=== PATIENT | female | born 1945 | race Caucasian/White ===

== ENCOUNTER 2016-11-25 19:15 | Outpatient (CLI) | payer MEDICARE, OTHER ==
[~2016-11-25 19:15] MED LIST: AC325T PO; ACET325T49 PO; ALPR0.254 PO; AMLO2.5T PO; ASP325T PO; ASPI-999 PO; ATOR10TA66 PO; ATRV10T PO; AZTH250C PO; BENZ100C8 PO; BUPR150T14 PO; BUPR150T20 PO; CALC-697 PO; CHOL100048 PO; CLOP75TA28 PO; ENOX100D4 SC; ENOX300V3 SQ; FURO20TA4 PO; GFN600TCR PO; GLYC2TAB PO; HYDR-2889 PO; HYDR-3812 PO; IBUP-2055 PO; ISOS30TA3 PO; LACT10SO PO; LISI40TA PO; MAGN400T39 PO; MELO15TA39 PO; MELO7.5T PO; MULT1TAB22 PO; NITR100C3 PO; OMEP40CA36 PO; ONDA8TAB13 PO; OXB5T PO; OXYB5TAB9 PO; OXYC-309 PO; PHEN200T27 PO; POTA10TA10 PO; RANI150T11 PO; SENN1TAB76 PO; SIMV20TA3 PO; SOTA80TA PO; TRAM50TA2 PO; TRIA1CAP4 PO; TRIA1TAB PO; TRM50T PO; VITA150T PO; WARF-48 PO; WARF10TA PO; WARF5TAB PO; WARF7.5T49 PO
== END 2016-11-26 06:52 | disposition home or self-care (01) ==
LOC: SLEEP 19:15
PROVIDERS: ATTEND Nurse Practitioner
DX: G47.19 Other hypersomnia (principal); G47.30 Sleep apnea, unspecified; R06.83 Snoring
CPT/HCPCS: 95811

== ENCOUNTER → 2018-04-14 | Outpatient (CLI) | payer MEDICARE, OTHER ==
[~2018-04-14] MED LIST changes: +ACHD5005 PO; -ENOX300V3 SQ; +ENOX300V4 SQ; -HYDR-3812 PO
--- NOTE | 2018-04-14 14:19 | Diagnostic Imaging Report ---
PROCEDURE: CT abdomen and pelvis without contrast. TECHNIQUE: Multiple contiguous axial images were obtained through the abdomen and pelvis without the use of intravenous contrast. INDICATION: Left-sided back pain. COMPARISON: There are no previous CT abdomen/pelvis examinations available for comparison. FINDINGS: The images through the low pelvis show that there is a well-circumscribed 6.2 x 9.1 cm calcific density near the ureterovesical junction on the left. On the coronal reconstructed images, this calcification seems to lie extraneous to the distal ureter (images 25, 26, and 52). The left ureter itself and the left renal pelvis do not seem to be dilated. If this calcification was within the ureter, given its size, I would expect there to be partial obstruction of the left collecting system. There is no sign of nephrolithiasis. There is no evidence for obstruction of the right collecting system either. By history, the uterus is surgically absent. There are diverticula involving the sigmoid and descending colon but there is no evidence for acute diverticulitis. The urinary bladder is grossly unremarkable. The appendix is not well visualized but there are no indirect signs of acute appendicitis. The liver, spleen, pancreas, adrenals, aorta, and inferior vena cava show no sign of an acute abnormality. The gallbladder is surgically absent. The stomach is not well distended and consequently difficult to assess. The images through the lung bases show alveolar/interstitial perihilar infiltrates on the left and a small area of increased density along the periphery of the right midlung. These findings are not visualized in their entirety but do suggest that they may be related to pneumonia or atelectasis. If further evaluation is desired, then CT of the chest would be recommended. The bone windows reveal that there is severe degenerative disc and bony disease at every level of the lumbar spine. There is no acute abnormality identified. IMPRESSION: 1. The large calcification near the ureterovesical junction on the left is more likely due to a phlebolith than to an obstructive calculus. If further evaluation is desired, then a followup CT abdomen/pelvis exam with intravenous contrast would be recommended. 2. There is no evidence for nephrolithiasis or urolithiasis, otherwise. 3. There is no acute abnormality of the abdomen or pelvis. 4. There is diverticulosis of the sigmoid and descending colon without evidence for acute diverticulitis. 5. The gallbladder and uterus are surgically absent. 6. There does appear to be some atelectasis/infiltrate in the left perihilar region and to a lesser extent the right midlung. Recommendations as above. Dictated by: Dictated on workstation # [id number]
--- NOTE | 2018-04-14 14:43 | Diagnostic Imaging Report ---
INDICATION: Low back pain. KUB 1:54 p.m. The gallbladder appears to be surgically absent. There are moderate degenerative changes throughout the lumbar spine. Bowel gas pattern is normal. IMPRESSION: Degenerative changes in the lumbar spine. No acute abnormality seen in the abdomen. Dictated by: Dictated on workstation # [id number]
== END ==
LOC: RAD 12:51
PROVIDERS: ATTEND Urology
DX: K57.30 Diverticulosis of large intestine without perforation or abscess without bleeding (principal); Z90.49 Acquired absence of other specified parts of digestive tract; Z90.710 Acquired absence of both cervix and uterus
CPT/HCPCS: 74018; 74176

== ENCOUNTER → 2018-11-18 | Outpatient (CLI) | payer MEDICARE, OTHER ==
[~2018-11-18] MED LIST changes: +CATHETER FLUSH 10 ML SYR IV PRN; +REGADENOSON 0.4 MG/5 ML SYR (LEXISCAN) IV ONE; +STL80T PO
[2018-11-18 09:33] VITALS: BP 156/71
--- NOTE | 2018-11-18 18:15 | STRESS TEST ---
DATE OF SERVICE: 11/18/2018 LEXISCAN MYOVIEW STRESS TEST REPORT REFERRING PHYSICIAN: Griffin Truong DO. Baseline heart rate is 65, baseline blood pressure 157/70. Baseline EKG is sinus rhythm with no ischemic changes. In summary, the patient was injected with 10.96 mCi of technetium-99 Myoview and the resting images were obtained. Then, the patient received 0.4 mg of Lexiscan followed by 27.4 mCi of technetium-99 Myoview. Throughout the test, there were no EKG changes. The resting and stress images were reviewed and compared in the short axis, horizontal long axis, and vertical long axis views. Review of the images showed good radiotracer uptake with no significant ischemia or infarction. SSS is 0. TID value 0.99. On the gated images, the left ventricle appeared to be in normal size with normal contractility. Calculated ejection fraction is 57%. CONCLUSION: 1. The patient tolerated Lexiscan well. 2. No ischemia or infarction on SPECT images. 3. Normal left ventricular size with normal contractility. Calculated ejection fraction is 57%. Job ID: [id number] DocumentID: [id number] Dictated Date: 11/18/2018 15:45:17 Medical Assistant Secretary Date: 11/18/2018 18:14:35 Dictated By: SARATH FELDMAN MD
== END ==
LOC: CARD 06:58
PROVIDERS: ATTEND Physician Assistant
DX: I35.1 Nonrheumatic aortic (valve) insufficiency (principal); R94.39 Abnormal result of other cardiovascular function study; I65.29 Occlusion and stenosis of unspecified carotid artery; I10 Essential (primary) hypertension; E78.5 Hyperlipidemia, unspecified
CPT/HCPCS: 78452; 93017

== ENCOUNTER → 2021-10-10 | Outpatient (CLI) | payer MEDICARE, OTHER ==
[~2021-10-10] MED LIST changes: +ALPR.25T PO; -ALPR0.254 PO; +BUPR-105 PO; -BUPR150T14 PO; -CATHETER FLUSH 10 ML SYR IV PRN; -IBUP-2055 PO; +IBUP-2473 PO; -ISOS30TA3 PO; +ISOS30TA82 PO; -LACT10SO PO; +LACT10SO3 PO; +OMEP40CA6 PO; +OXYB5TAB13 PO; -OXYB5TAB9 PO; -REGADENOSON 0.4 MG/5 ML SYR (LEXISCAN) IV ONE; -WARF5TAB PO; +WARF5TAB2 PO; +WARF7.5T3 PO; -WARF7.5T49 PO
== END ==
LOC: CARD 12:20
PROVIDERS: ATTEND Internal Medicine Cardiovascular Disease
DX: I34.0 Nonrheumatic mitral (valve) insufficiency (principal); I11.9 Hypertensive heart disease without heart failure
CPT/HCPCS: 93306

== ENCOUNTER → 2021-12-04 | Outpatient (CLI) | payer MEDICARE, OTHER ==
[~2021-12-04] VITALS: Ht 152.4 cm; Wt 69.1 kg
[~2021-12-04] MED LIST changes: +HYDR25TA4 PO; +RIVA20TA PO; +TRIA1CAP84 PO
== END | disposition home or self-care (01) ==
LOC: PREOP 05:29
PROVIDERS: ATTEND Urology
DX: Z01.818 Encounter for other preprocedural examination (principal)

== ENCOUNTER 2021-12-11 06:15 | Day surgery (SDC) | payer MEDICARE, OTHER ==
[~2021-12-11] VITALS: Ht 152.4 cm; Wt 71.9 kg
[2021-12-11] VITALS (12 sets, daily range): BP systolic 87–160; BP diastolic 51–77
[2021-12-11] MEDS ORDERED: cefTRIAXone 1 GM PRE-MIX 50 ML IV ONE (06:30)
[2021-12-11] MEDS ORDERED: LACTATED RINGERS 1,000 ML IV PRN (06:30)
[2021-12-11] MEDS ORDERED: LIDOCAINE/EPI 2% 1:100,00 (XYLOCAINE) 20 ML VIAL ONE (07:00)
[2021-12-11] MEDS ORDERED: ESTRADIOL VAGINAL CREAM 42.5 GM (ESTRACE) VG ONE (07:00)
[2021-12-11] MEDS ORDERED: PROPOFOL INJECTION 50 ML IV ONE (07:49)
[2021-12-11] MEDS ORDERED: fentaNYL INJ 100 MCG/2 ML AMP ONE (07:49)
[2021-12-11] MEDS ORDERED: LIDOCAINE PF 2% 5 ML (XYLOCAINE) VIAL ONE (07:49)
[2021-12-11] MEDS ORDERED: proPOfol 200 MG/20 ML (DIPRIVAN) VIAL IV ONE ×2 (07:49→08:41)
[2021-12-11] MEDS ORDERED: FAMOTIDINE 20MG/2ML IV (PEPCID) IVP ONE (08:00)
[2021-12-11] MEDS ORDERED: ONDANSETRON 4 MG/2 ML (SDV) Z0FRAN IVP ONE (08:00)
--- NOTE | 2021-12-11 08:02 | Progress Note-Pre Operative ---
Pre-Operative Progress Note H&P Reviewed The H&P was reviewed, patient examined and no changes noted. Date Seen by Provider: Dec 11, 2021 Time Seen by Provider: 08:02 Date H&P Reviewed: Dec 11, 2021 Time H&P Reviewed: 08:02 Pre-Operative Diagnosis: CYSTOCELE AND INCONTINENCE HIWOT GOFF MD Dec 11, 2021 08:02
--- NOTE | 2021-12-11 08:05 | Progress Note-Post Operative ---
Post-Operative Progess Note Surgeon (s)/Senior Technical Manager (s) Surgeon HIWOT GOFF MD Senior Technical Manager: NONE Pre-Operative Diagnosis CYSTOCELE AND INCONTINENCE Post-Operative Diagnosis SAME Procedure & Operative Findings Date of Procedure 12/11/21 Procedure Performed/Findings ANTERIOR REPAIR, PVS AND CYSTOSCOPY Anesthesia Type GENERAL Estimated Blood Loss Estimated blood loss (mL): LESS THAN 50 cc Specimens/Packing Specimens Removed NONE TO PATH Packin GM ESTRACE VAG PACK HIWOT GOFF MD Dec 11, 2021 08:05
[2021-12-11] MEDS ORDERED: MILK OF MAGNESIA 400 MG/5 ML 30 ML UDC PO PRN (08:15)
--- NOTE | 2021-12-11 09:11 | Anesthesia-General Post-Op ---
General Patient Condition Mental Status/LOC: Same as Preop Cardiovascular: Satisfactory Nausea/Vomiting: Absent Respiratory: Satisfactory Pain: Controlled Complications: Absent Post Op Complications Complications None Follow Up Care/Instructions Patient Instructions None needed. Anesthesia/Patient Condition Patient Condition Patient is awake in PACU and doing well, no complaints, stable vital signs, no apparent adverse anesthesia problems. No complications reported per nursing. SHANNAN NELSON DO Dec 11, 2021 09:11
[2021-12-11] MEDS ORDERED: ONDANSETRON 4 MG/2 ML (SDV) Z0FRAN IVP PRN (09:15)
[2021-12-11] MEDS ORDERED: morphine INJ 10 MG/ML 1ML (SYR OR VIAL) IVP ONE (09:15)
[2021-12-11] MEDS: LACTATED RINGERS 1,000 ML IV SCH ×2 (10:27→16:00)
--- NOTE | 2021-12-11 13:38 | OPERATIVE REPORT ---
DATE OF SERVICE: 12/11/2021 PREOPERATIVE DIAGNOSES: Cystocele and incontinence. POSTOPERATIVE DIAGNOSES: Cystocele and incontinence. OPERATION PERFORMED: Anterior repair, pubovaginal sling, and cystoscopy. SURGEON: Claudio Goff MD. ANESTHESIA: General. COMPLICATIONS: None. DESCRIPTION OF PROCEDURE: Under satisfactory general anesthesia, the patient in extended lithotomy position, genitalia were prepped and draped in the usual sterile fashion. Espinoza catheter was inserted and connected to gravity. The anterior vaginal wall was infiltrated with lidocaine and epinephrine and an incision was made vertically in the anterior vaginal wall. The mucosa was dissected free from the underlying fascia. The fascia was approximated with several interrupted 2-0 Vicryl giving excellent support to the bladder. The Desara 2 pubovaginal sling was passed using the described technique. The sling was sitting nicely under the mid urethra with no twisting, no tension and passage of a curved hemostat easily between it and the underlying tissue. I removed the Espinoza catheter to perform cystoscopy to confirm the integrity of the bladder, ureters and urethra with no foreign body and presence of the sling under the mid urethra. I left the bladder half full to perform a manual Valsalva maneuver that was negative. Espinoza catheter was reinserted draining clear fluid. The excess vaginal mucosa was sharply excised and the mucosa was approximated with a running 2-0 Vicryl Rapide type suture. A 2 gram Estrace vaginal pack was inserted at the end of the procedure. The needle and sponge count was correct x2. Estimated blood loss was than 50 mL, urine clear all through the surgery and postoperatively. Job ID: [id number] DocumentID: [id number] Dictated Date: 12/11/2021 08:55:47 Basting Machine Operator Date: 12/11/2021 13:37:56 Dictated By: CLAUDIO GOFF MD [facility]
[2021-12-12 04:50] VITALS: BP 129/60
[2021-12-12] MEDS: LACTATED RINGERS 1,000 ML IV SCH ×2 (06:28→20:56)
[2021-12-12 07:55] VITALS: BP 114/58
--- NOTE | 2021-12-12 11:27 | Progress Note - Urology ---
Progress Note-Urology Progress Notes/Assess & Plan Progress/Assessment & Plan DOING WELL, VOIDING WELL, PVR 21. DRY. DISCHARGE WITH INSTRUCTIONS Final Diagnosis CYSTOCELE AND INCONTINENCE HIWOT GOFF MD Dec 12, 2021 11:27
--- NOTE | 2021-12-12 11:31 | Discharge Inst-Urology ---
Discharge Inst-Urology Reconcile Patient Problems Problems Reviewed?: Yes Final Diagnosis CYSTOCELE AND INCONTINENCE Patient Instructions/Follow Up Plan/Assessment/Instructions Please make appointment to been seen in office in 2 weeks. Rest till then C to visit daily and PRN, Straight cath PRN STAY OFF ASA AND XARELTO Keep bowels soft and moving Showers, no bath Please call her pharmacy for Rx Cipro 250 BID for 5 days Increase oral fluids for 48 hours and then as needed. Diet as tolerated. If questions or concerns contact your physician Or seek help at emergency department. HIWOT GOFF MD Dec 12, 2021 11:31
--- NOTE | 2021-12-12 11:46 | D/C HH Face to Face Order ---
D/C Face to Face Orders Instructions for Patient Via [facility], Patient Instructions/FollowUp: Staright cath if retention Physician to follow Patient: Dionne Discharge Diet for Home: No Restrictions Patient Data-Allergies,Ht & Wt Patient Allergies: Coded Allergies: azithromycin (Unverified Allergy, Unknown, Rash, 12/04/21) diltiazem (Verified Allergy, Unknown, 07/13/15) erythromycin base (Unverified Allergy, Unknown, 12/04/21) metronidazole (Verified Allergy, Unknown, 07/13/15) Height (Feet): 5 Height (Inches): 1.00 Weight (Pounds): 232 Weight (Ounces): 0.0 Home Health Need/Face to Face Date of Face to Face: Dec 12, 2021 Clinical Findings: Generalized weakness and fatigue, Instability, Other-list in note Postop I have seen Pt [id number]: Yes Discharged To: Home Diagnosis/Conditions: CYSTOCELE AND INCONTINENCE Patient is Homebound due to: Case fall risk due to instabilty, Pain w/ambulation Homebound Status Due to the above stated illness, injury or surgical procedure (medical condition or diagnosis) and associated clinical findings, the patient is homebound because of his/her inability to leave home except with aid of a supportive device and/or person AND leaving the home requires a considerable and taxing effort or is medically contraindicated. Pt req the following assistanc: [facility] Nursing Orders Home Health Services Order: Nursing Services, Tobacco Classer-Evaluate & Treat, Physical Therapy-Evaluate & Treat Home Health Infusion Therapy Line Start Date: Dec 11, 2021 Certify Stmt I certify that this patient is under my care and that I, a nurse practitioner or a physician; a loan assistant working with me, had a face to face encounter that - meets the physician face to face encounter requirements with this patient as dated. HIWOT GOFF MD Dec 12, 2021 11:46
[2021-12-12 12:50] VITALS: BP 148/76
[2021-12-12 16:00] VITALS: BP 142/72
== END 2021-12-12 17:35 | disposition home or self-care (01) ==
LOC: SDC 06:15 → WS 10:08 → SDC 12-12 17:35
PROVIDERS: ATTEND Urology
DX: N81.10 Cystocele, unspecified (principal); E66.01 Morbid (severe) obesity due to excess calories; Z68.31 Body mass index [BMI] 31.0-31.9, adult; G47.33 Obstructive sleep apnea (adult) (pediatric); Z79.899 Other long term (current) drug therapy
CPT/HCPCS: 57240; 57288; 87081; 94664; C1771

== ENCOUNTER 2022-05-04 14:00 | Outpatient (RCR) | payer MEDICARE, OTHER ==
[2022-05-03 14:00] LABS: BASOPHILS # (AUTO) 0.1 10^3/uL (0.0-0.1); BASOPHILS % (AUTO) 1 % (0-10); EOSINOPHILS # (AUTO) 0.2 10^3/uL (0.0-0.3); EOSINOPHILS % (AUTO) 3 % (0-10); HEMATOCRIT 36 % (35-52); HEMOGLOBIN 12.4 g/dL (11.5-16.0); LYMPHOCYTES # (AUTO) 2.9 10^3/uL (1.0-4.0); LYMPHOCYTES % (AUTO) 37 % (12-44); MEAN CORPUSCULAR HEMOGLOBIN 31 pg (25-34); MEAN CORPUSCULAR HGB CONC 34 g/dL (32-36); MEAN CORPUSCULAR VOLUME 92 fL (80-99); MEAN PLATELET VOLUME 10.1 fL (9.0-12.2); MONOCYTES # (AUTO) 0.8 10^3/uL (0.0-1.0); MONOCYTES % (AUTO) 10 % (0-12); NEUTROPHILS # (AUTO) 3.9 10^3/uL (1.8-7.8); NEUTROPHILS % (AUTO) 50 % (42-75); PLATELET COUNT 261 10^3/uL (130-400); WHITE BLOOD COUNT 7.8 10^3/uL (4.3-11.0)
--- NOTE | 2022-05-03 14:13 | Diagnostic Imaging Report ---
INDICATION: Cough PA and lateral views of the chest are obtained. Comparison is made to study of 07/12/2015. Overall heart size and pulmonary vascularity are within normal limits. Linear atelectasis and/or scarring is again noted in both lungs. There is no evidence of pneumothorax, consolidation or significant pleural fluid. IMPRESSION: Linear scarring in both lungs without acute abnormality or other significant change. Dictated by: Dictated on workstation # [id number]
[2022-05-03 14:21] LABS: ALBUMIN 3.7 GM/DL (3.2-4.5); BILIRUBIN,TOTAL 0.3 MG/DL (0.1-1.0); CALCIUM 9.3 MG/DL (8.5-10.1); CREATININE SERUM 0.65 MG/DL (0.60-1.30); POTASSIUM 3.7 MMOL/L (3.6-5.0); TOTAL PROTEIN 6.9 GM/DL (6.4-8.2)
== END 2022-05-08 | disposition home or self-care (01) ==
LOC: RAD 14:00
PROVIDERS: ATTEND Registered Nurse Critical Care Medicine
DX: J98.4 Other disorders of lung (principal); J15.8 Pneumonia due to other specified bacteria; B37.84 Candidal otitis externa; B37.0 Candidal stomatitis; I10 Essential (primary) hypertension; K21.9 Gastro-esophageal reflux disease without esophagitis; H92.01 Otalgia, right ear; E78.49 Other hyperlipidemia; R09.81 Nasal congestion
CPT/HCPCS: 36415; 71046; 80053; 85025; 87581

== ENCOUNTER 2023-03-13 11:53 | Inpatient (IN) | payer MEDICARE, OTHER ==
[~2023-03-13] VITALS: Ht 154.9 cm; Wt 64.4 kg
--- NOTE | 2023-03-13 12:09 | ED Cardiac General ---
History of Present Illness General Stated Complaint: BRADYCARDIA Source: patient, EMS Exam Limitations: no limitations History of Present Illness Date Seen by Provider: Mar 13, 2023 Time Seen by Provider: 11:52 Initial Comments 77-year-old female with history of atrial fibrillation presents to the emergency department today for generalized weakness, lightheadedness and chest pain. EMS reports upon their arrival her heart rate was 29. She does take sotalol. They gave her 0.5 mg of atropine her heart rate improved to 35-40. Her blood pressure when her heart rate was in the 20s was 90 systolic. She improved to around 120 systolic per EMS report after the gave her atropine. She was less responsive during her profound bradycardia but became more interactive once her heart rate was up in the 40s. She states she has had no recent changes in her medication. She is not having any current chest pain. All other systems reviewed and negative except documented per HPI. Voice recognition software was used to help create this chart Allergies and Home Medications Allergies Coded Allergies: azithromycin (Unverified Allergy, Unknown, Rash, 12/04/21) diltiazem (Verified Allergy, Unknown, 07/13/15) erythromycin base (Unverified Allergy, Unknown, 12/04/21) metronidazole (Verified Allergy, Unknown, 07/13/15) Patient Home Medication List Home Medication List Reviewed: Yes Atorvastatin Calcium (Atorvastatin Calcium) 10 Mg Tablet, 10 MG PO HS, (Reported) Entered as Reported by: PAT URIARTE on 09/11/15 1523 Calcium Carbonate/Vitamin D3 (Calcium 1,000 + D3 Caplet) 1 Each Tablet, 1 CAP PO TID, (Reported) Entered as Reported by: CANDIDA BOLANOS on 07/12/15 1434 Cholecalciferol (Vitamin D3) (Vitamin D) 1,000 Unit Capsule, 5,000 UNIT PO DAILY, (Reported) Entered as Reported by: CANDIDA BOLANOS on 07/12/15 1434 Hydrochlorothiazide (Hydrochlorothiazide) 25 Mg Tablet, 25 MG PO UD, (Reported) Entered as Reported by: CARMEN PRYOR on 12/04/21 1014 Isosorbide Mononitrate (Isosorbide Mononitrate ER) 30 Mg Tab.er.24h, 30 MG PO BID, (Reported) Entered as Reported by: CANDIDA BOLANOS on 07/12/15 1435 Omeprazole (Omeprazole) 40 Mg Capsule.dr, 40 MG PO DAILY, (Reported) Entered as Reported by: CANDIDA BOLANOS on 07/12/15 1435 Ondansetron (Ondansetron Odt) 8 Mg Tab.rapdis, 8 MG PO Q6H PRN for NAUSEA/VOMITING, (Reported) Entered as Reported by: PAT URIARTE on 09/11/15 1523 Oxybutynin Chloride (Oxybutynin Chloride) 5 Mg Tablet, 5 MG PO BID, (Reported) Entered as Reported by: CANDIDA BOLANOS on 07/12/15 1434 Potassium Chloride (Potassium Chloride) 10 Meq Tablet.er, 10 MEQ PO DAILY Prescribed by: CAROL ROE on 09/25/15 1238 Sotalol HCl (Sotalol) 80 Mg Tablet, 80 MG PO BID, (Reported) Entered as Reported by: CANDIDA BOLANOS on 07/12/15 1435 Review of Systems Review of Systems Constitutional: see HPI Past Ihtcteb-Bvkren-Ebmgqu Hx Patient Social History Tobacco Use?: No Use of E-Cig and/or Vaping dev: No Substance use?: No Alcohol Use?: No Immunizations Up To Date Tetanus Booster (TDap): Unknown First/Initial COVID19 Vaccinat: 2020 Second COVID19 Vaccination Oliver: 2020 Third COVID19 Vaccination Date: 2020 Seasonal Allergies Seasonal Allergies: Yes Past Medical History Surgeries: Yes (LEFT TKR, LEFT ANKLE FX, BILAT CTR, RIGHT FOOT SX, ) Hysterectomy Respiratory: Yes (USES INHALERS PRN) Sleep Apnea Currently Using CPAP: Yes Currently Using BIPAP: No Cardiac: Yes (SEES DR REID FOR "2 LITTLE BLOCKAGES". HX OF BLOOD CLOT IN LEFT KNEE/GROIN) Coronary Artery Disease, High Cholesterol, Hypertension, Irregular Heartbeat Neurological: Yes Neuropathy Reproductive Disorders: No Sexually Transmitted Disease: No Genitourinary: Yes (THIRD KIDNEY) Bladder Infection, UTI-Chronic Gastrointestinal: Yes Gastroesophageal Reflux, Diverticulosis Musculoskeletal: Yes (FX RIBS; Right foot drop) Degenerate Disk Disease, Arthritis, Foot Drop, Fractures Endocrine: No Cataract Loss of Vision: Denies Hearing Impairment: Denies Cancer: No Psychosocial: Yes Depression Integumentary: Yes (has had shingles twice) Psoriasis Blood Disorders: No (HX OF BLOOD CLOTS) Adverse Reaction/Blood Tranf: No Family Medical History Cardiovascular disease 19 MOTHER Completed stroke 19 MOTHER Diabetes mellitus 19 MOTHER FH: atrial fibrillation 19 FATHER FH: colon polyps G8 SISTER FH: kidney cancer 19 MOTHER FH: spinal stenosis 19 FATHER Hypertension 19 FATHER Thyroid disease G8 SISTER No Pertinent Family Hx Physical Exam Vital Signs Vital Signs - First Documented 03/13/23 11:55 Temp 36.9 Pulse 34 Resp 16 B/P (MAP) 123/53 (76) Pulse Ox 96 O2 Delivery Nasal Cannula O2 Flow Rate 2.00 Capillary Refill : Height, Weight, BMI Height: 5'1.00" Weight: 232lbs. 0.0oz. 105.674992dp; 30.95 BMI Method: General Appearance: Moderate Distress HEENT: Normal ENT Inspection Neck: Supple Respiratory: Lungs Clear, Normal Breath Sounds, No Accessory Muscle Use Cardiovascular: No Murmur, Bradycardia Gastrointestinal: Normal Bowel Sounds, No Organomegaly, Soft Extremity: Other (Delayed capillary refill) Neurologic/Psychiatric: Other (Somnolent, confused) Skin: Pallor Progress/Results/Core Measures Results/Orders Lab Results Laboratory Tests Test 03/13/23 12:00 Range/Units White Blood Count 5.7 4.3-11.0 10^3/uL Red Blood Count 3.99 3.80-5.11 10^6/uL Hemoglobin 12.6 11.5-16.0 g/dL Hematocrit 37 35-52 % Mean Corpuscular Volume 93 80-99 fL Mean Corpuscular Hemoglobin 32 25-34 pg Mean Corpuscular Hemoglobin Concent 34 32-36 g/dL Red Cell Distribution Width 13.5 10.0-14.5 % Platelet Count 241 130-400 10^3/uL Mean Platelet Volume 10.0 9.0-12.2 fL Immature Granulocyte % (Auto) 1 % Neutrophils (%) (Auto) 56 42-75 % Lymphocytes (%) (Auto) 34 12-44 % Monocytes (%) (Auto) 7 0-12 % Eosinophils (%) (Auto) 1 0-10 % Basophils (%) (Auto) 1 0-10 % Neutrophils # (Auto) 3.2 1.8-7.8 10^3/uL Lymphocytes # (Auto) 1.9 1.0-4.0 10^3/uL Monocytes # (Auto) 0.4 0.0-1.0 10^3/uL Eosinophils # (Auto) 0.1 0.0-0.3 10^3/uL Basophils # (Auto) 0.1 0.0-0.1 10^3/uL Immature Granulocyte # (Auto) 0.0 0.0-0.1 10^3/uL Prothrombin Time 19.3 H 12.2-14.7 SEC INR Comment 1.6 H 0.8-1.4 Activated Partial Thromboplast Time 35 24-35 SEC Sodium Level 122 *L 135-145 MMOL/L Potassium Level 5.9 H 3.6-5.0 MMOL/L Chloride Level 92 L 98-107 MMOL/L Carbon Dioxide Level 24 21-32 MMOL/L Anion Gap 6 5-14 MMOL/L Blood Urea Nitrogen 20 H 7-18 MG/DL Creatinine 0.81 0.60-1.30 MG/DL Estimat Glomerular Filtration Rate 75 BUN/Creatinine Ratio 25 Glucose Level 125 H 70-105 MG/DL Calcium Level 9.4 8.5-10.1 MG/DL Corrected Calcium 9.6 8.5-10.1 MG/DL Magnesium Level 2.6 H 1.6-2.4 MG/DL Total Bilirubin 0.3 0.1-1.0 MG/DL Aspartate Amino Transf (AST/SGOT) 79 H 5-34 U/L Alanine Aminotransferase (ALT/SGPT) 53 0-55 U/L Alkaline Phosphatase 75 40-136 U/L Troponin I < 0.028 <0.028 NG/ML Total Protein 6.3 L 6.4-8.2 GM/DL Albumin 3.7 3.2-4.5 GM/DL My Orders Orders - JESSICA METCALF DO Ekg Tracing (03/13/23 11:59) Cbc And Automated Diff (03/13/23 12:04) Magnesium (03/13/23 12:04) Chest 1 View, Ap/Pa Only (03/13/23 12:04) Ekg Tracing (03/13/23 12:04) Comprehensive Metabolic Panel (03/13/23 12:04) Protime With Inr (03/13/23 12:04) Partial Thromboplastin Time (03/13/23 12:04) O2 (03/13/23 12:04) Monitor-Rhythm Ecg Trace Only (03/13/23 12:04) Ed Iv/Invasive Line Start (03/13/23 12:04) Troponin I [place] (03/13/23 12:04) Aspirin Chewable Tablet (Aspirin Chewabl (03/13/23 12:15) Atropine Inj 1 Mg Syringe (Atropine Inj (03/13/23 12:15) Isoproterenol Injection (Isoproterenol I (03/13/23 12:15) Calcium Gluconate 1gm Ivpb (Calcium Gluc (03/13/23 12:45) Insulin (Regular) Per Unit (Insulin (Reg (03/13/23 12:45) D50w (Emergency) Syringe (Dextrose 50% 5 (03/13/23 12:45) Albuterol Pre-Mix Nebs (Rt) (Albuterol (03/13/23 12:45) Sodium Bicarbonate 8.4% Syr (Sodium Bica (03/13/23 12:45) Svn Small Volume Nebulizer (03/13/23 12:40) Code/Resuscitation (03/13/23 12:45) Ed Admission (Communication) (03/13/23 12:45) Medications Given in ED Current Medications Medications Dose Ordered Sig/Sunitha Route Start Time Stop Time Status Last Admin Dose Admin Albuterol Sulfate 10 mg ONCE ONCE INH 03/13/23 12:45 03/13/23 12:46 DC 03/13/23 13:01 10 MG Aspirin 324 mg ONCE ONCE PO 03/13/23 12:15 03/13/23 12:16 DC 03/13/23 12:56 324 MG Atropine Sulfate 0.5 mg ONCE ONCE IV 03/13/23 12:15 03/13/23 12:16 DC 03/13/23 12:00 0.5 MG Calcium Gluconate/ Sodium Chloride 100 ml @ 120 mls/hr ONCE ONCE IV 03/13/23 12:45 03/13/23 13:34 DC 03/13/23 12:45 120 MLS/HR Dextrose 50 ml ONCE ONCE IV 03/13/23 12:45 03/13/23 12:46 DC 03/13/23 13:15 50 ML Insulin Human Regular 10 unit ONCE ONCE IV 03/13/23 12:45 03/13/23 12:46 DC 03/13/23 13:18 10 UNIT Isoproterenol HCl 0.2 mg/Sodium Chloride 101 ml @ 0 mls/hr ONCE ONCE IV 03/13/23 12:15 03/13/23 12:17 DC 03/13/23 12:42 0 MLS/HR Sodium Bicarbonate 50 meq ONCE ONCE IV 03/13/23 12:45 03/13/23 12:46 DC 03/13/23 13:19 50 MEQ Vital Signs/I&O 03/13/23 03/13/23 11:55 11:55 Temp 36.9 Pulse 34 Resp 16 B/P (MAP) 123/53 (76) Pulse Ox 96 96 O2 Delivery Nasal Cannula Nasal Cannula O2 Flow Rate 2.00 2.00 Comment Atrial fibrillation with a bradycardic rate of 39 bpm. Normal intervals outside of DE interval. Normal axis. T wave inversion in lead III, otherwise no ST or T wave abnormalities. No ectopy. No STEMI. Critical Care Note Critical Care Total Time (minutes) 90 Departure Communication (Admissions) Patient with significant bradycardia and confusion, Given another 0.5mg atropine with no improvement. She is started on isoproterenol. Labs come back and she has hyponatremia and hyperkalemia. Upon identification of hyperK i gave calcium as well as insulin, glucose, d50, albuterol, and bicarb. She is also given IVF. She had brief improvement in her HR, inthe the mid 50;s and then began to dip back down again. I did speak with Dr Reid early in her hospital course and he ultimately decides to take her to the photo lab technician for pacemnaker placement. Impression Primary Impression: Atrial fibrillation Qualified Codes: I48.0 - Paroxysmal atrial fibrillation Additional Impression: Bradycardia Disposition: ADMITTED INPATIENT Condition: Critical Departure-Patient Inst. Referrals: EMILY FELDMAN DO (PCP/Family) Primary Care Physician JESSICA METCALF DO Mar 13, 2023 12:09
[2023-03-13] MEDS ORDERED: ASPIRIN 81 MG CHEWABLE TABLET PO ONE (12:15)
[2023-03-13] MEDS ORDERED: ISOPROTERENOL IV ONE (12:15)
[2023-03-13] MEDS ORDERED: ATROPINE 1 MG/10 ML EMERGENCY SYRINGE IV ONE (12:15)
[2023-03-13] MEDS ORDERED: NS IV ONE (12:15)
[2023-03-13 12:16] LABS: BASOPHILS # (AUTO) 0.1 10^3/uL (0.0-0.1); BASOPHILS % (AUTO) 1 % (0-10); EOSINOPHILS # (AUTO) 0.1 10^3/uL (0.0-0.3); EOSINOPHILS % (AUTO) 1 % (0-10); HEMATOCRIT 37 % (35-52); HEMOGLOBIN 12.6 g/dL (11.5-16.0); LYMPHOCYTES # (AUTO) 1.9 10^3/uL (1.0-4.0); LYMPHOCYTES % (AUTO) 34 % (12-44); MEAN CORPUSCULAR HEMOGLOBIN 32 pg (25-34); MEAN CORPUSCULAR HGB CONC 34 g/dL (32-36); MEAN CORPUSCULAR VOLUME 93 fL (80-99); MONOCYTES # (AUTO) 0.4 10^3/uL (0.0-1.0); MONOCYTES % (AUTO) 7 % (0-12); NEUTROPHILS # (AUTO) 3.2 10^3/uL (1.8-7.8); NEUTROPHILS % (AUTO) 56 % (42-75); PLATELET COUNT 241 10^3/uL (130-400); WHITE BLOOD COUNT 5.7 10^3/uL (4.3-11.0)
[2023-03-13 12:17] LABS: ALBUMIN 3.7 GM/DL (3.2-4.5); CHLORIDE 92 MMOL/L (98-107); POTASSIUM 5.9 MMOL/L (3.6-5.0)
[2023-03-13 12:18] LABS: CALCIUM 9.4 MG/DL (8.5-10.1)
[2023-03-13 12:19] LABS: GLUCOSE 125 MG/DL (70-105)
[2023-03-13 12:20] LABS: TOTAL PROTEIN 6.3 GM/DL (6.4-8.2)
[2023-03-13 12:21] LABS: BILIRUBIN,TOTAL 0.3 MG/DL (0.1-1.0); CARBON DIOXIDE 24 MMOL/L (21-32); INR 1.6 (0.8-1.4); PROTHROMBIN TIME PATIENT 19.3 SEC (12.2-14.7)
[2023-03-13 12:23] LABS: ALKALINE PHOSPHATASE 75 U/L (40-136); CREATININE SERUM 0.81 MG/DL (0.60-1.30); GFR ESTIMATED 75
[2023-03-13 12:24] LABS: BUN/CREATININE RATIO 25
[2023-03-13 12:26] LABS: ALANINE AMINOTRANSFERASE 53 U/L (0-55); MAGNESIUM 2.6 MG/DL (1.6-2.4)
[2023-03-13 12:27] LABS: SODIUM 122 MMOL/L (135-145)
[2023-03-13] MEDS ORDERED: DEXTROSE 50% 50 ML (IMS) SYR IV ONE (12:45)
[2023-03-13] MEDS ORDERED: CALCIUM GLUCONATE 1GM IVPB 100 ML IV ONE (12:45)
[2023-03-13] MEDS ORDERED: RT-ALBUTEROL SULF 2.5 MG/3 ML PRE-MIX VIAL INH ONE (12:45)
[2023-03-13] MEDS ORDERED: SODIUM BICARB 8.4% 50 MEQ/50 ML (ABBOTT) SYR IV ONE (12:45)
[2023-03-13] MEDS ORDERED: inSUlin (REGULAR) HUMAN 1 UNIT/0.01 ML (CHARGE PER UNIT) IV ONE (12:45)
--- NOTE | 2023-03-13 12:45 | Consultation-Cardiology ---
HPI-Cardiology Cardiology Consultation Date of Consultation 03/13/23 Date of Admission Time Seen by Provider: 12:43 Indication: Bradycardia HPI 77 years old lady with historyof PAD, palpitation, has history of bradycardia, seen in ER for fatigue and loss of energy, HR 35, had some chest pain No syncope Home Medications & Allergies Allergies: Coded Allergies: azithromycin (Unverified Allergy, Unknown, Rash, 12/04/21) diltiazem (Verified Allergy, Unknown, 07/13/15) erythromycin base (Unverified Allergy, Unknown, 12/04/21) metronidazole (Verified Allergy, Unknown, 07/13/15) Home Medication List Reviewed: Yes [id number] Hx Patient Social History Marital Status: single Recent Hopitalizations: No Immunizations Up To Date Tetanus Booster (TDap): Unknown Date of Pneumonia Vaccine: Jun 21, 2015 Date of Influenza Vaccine: Mar 21, 2021 Family Medical History Significant Family History: No Pertinent Family Hx Family History: Cardiovascular disease 19 MOTHER Completed stroke 19 MOTHER Diabetes mellitus 19 MOTHER FH: atrial fibrillation 19 FATHER FH: colon polyps G8 SISTER FH: kidney cancer 19 MOTHER FH: spinal stenosis 19 FATHER Hypertension 19 FATHER Thyroid disease G8 SISTER Review of Systems-General Review of Systems Constitutional: see HPI, malaise, weakness EENTM: see HPI, no symptoms reported Respiratory: see HPI, dyspnea on exertion Cardiovascular: see HPI, chest pain; No edema, No Hx of Intervention, No palpitations, No syncope, No vascular heart diseas, No other Gastrointestinal: no symptoms reported, see HPI Genitourinary: no symptoms reported, see HPI Musculoskeletal: no symptoms reported, see HPI Skin: no symptoms reported, see HPI Psychiatric/Neurological: No Symptoms Reported, See HPI Reviewed Test Results Reviewed Test Results Lab Laboratory Tests Test 03/13/23 12:00 Range/Units White Blood Count 5.7 4.3-11.0 10^3/uL Red Blood Count 3.99 3.80-5.11 10^6/uL Hemoglobin 12.6 11.5-16.0 g/dL Hematocrit 37 35-52 % Mean Corpuscular Volume 93 80-99 fL Mean Corpuscular Hemoglobin 32 25-34 pg Mean Corpuscular Hemoglobin Concent 34 32-36 g/dL Red Cell Distribution Width 13.5 10.0-14.5 % Platelet Count 241 130-400 10^3/uL Mean Platelet Volume 10.0 9.0-12.2 fL Immature Granulocyte % (Auto) 1 % Neutrophils (%) (Auto) 56 42-75 % Lymphocytes (%) (Auto) 34 12-44 % Monocytes (%) (Auto) 7 0-12 % Eosinophils (%) (Auto) 1 0-10 % Basophils (%) (Auto) 1 0-10 % Neutrophils # (Auto) 3.2 1.8-7.8 10^3/uL Lymphocytes # (Auto) 1.9 1.0-4.0 10^3/uL Monocytes # (Auto) 0.4 0.0-1.0 10^3/uL Eosinophils # (Auto) 0.1 0.0-0.3 10^3/uL Basophils # (Auto) 0.1 0.0-0.1 10^3/uL Immature Granulocyte # (Auto) 0.0 0.0-0.1 10^3/uL Prothrombin Time 19.3 H 12.2-14.7 SEC INR Comment 1.6 H 0.8-1.4 Activated Partial Thromboplast Time 35 24-35 SEC Sodium Level 122 *L 135-145 MMOL/L Potassium Level 5.9 H 3.6-5.0 MMOL/L Chloride Level 92 L 98-107 MMOL/L Carbon Dioxide Level 24 21-32 MMOL/L Anion Gap 6 5-14 MMOL/L Blood Urea Nitrogen 20 H 7-18 MG/DL Creatinine 0.81 0.60-1.30 MG/DL Estimat Glomerular Filtration Rate 75 BUN/Creatinine Ratio 25 Glucose Level 125 H 70-105 MG/DL Calcium Level 9.4 8.5-10.1 MG/DL Corrected Calcium 9.6 8.5-10.1 MG/DL Magnesium Level 2.6 H 1.6-2.4 MG/DL Total Bilirubin 0.3 0.1-1.0 MG/DL Aspartate Amino Transf (AST/SGOT) 79 H 5-34 U/L Alanine Aminotransferase (ALT/SGPT) 53 0-55 U/L Alkaline Phosphatase 75 40-136 U/L Troponin I < 0.028 <0.028 NG/ML Total Protein 6.3 L 6.4-8.2 GM/DL Albumin 3.7 3.2-4.5 GM/DL Physical Exam Physical Exam Vital Signs Capillary Refill : Height, Weight, BMI Height: 5'1.00" Weight: 232lbs. 0.0oz. [id number]; 30.95 BMI Method: General Appearance: No Apparent Distress, WD/WN Eyes: Bilateral Eye Normal Inspection, Bilateral Eye PERRL, Bilateral Eye EOMI HEENT: PERRL/EOMI, TMs Normal, Normal ENT Inspection, Pharynx Normal, Moist Mucous Membranes Neck: Full Range of Motion, Normal Inspection, Non Tender, Supple, Carotid Bruit Respiratory: Chest Non Tender, Normal Breath Sounds, No Accessory Muscle Use, No Respiratory Distress Cardiovascular: No Edema, No Gallop, No JVD, No Murmur, Normal Peripheral Pulses, Bradycardia, Systolic Murmur Gastrointestinal: Normal Bowel Sounds, No Organomegaly, No Pulsatile Mass, Non Tender, Soft Back: Normal Inspection, No CVA Tenderness, No Vertebral Tenderness Extremity: Normal Capillary Refill, Normal Inspection, Normal Range of Motion, Non Tender, No Calf Tenderness, No Pedal Edema Neurologic/Psychiatric: Alert, Oriented x3, No Motor/Sensory Deficits, Normal Mood/Affect Skin: Normal Color, Warm/Dry Lymphatic: No Adenopathy A/P-Cardiology Admission Diagnosis Bradycardia Complete heart block PAF CP Assessment/Plan Symptomatic bradycardia, escape junctional rhythm Complete heart block Planning to proceed with Pacemaker Chest pain, nonspecific etiology, still having occasional chest discomfort Requesting conservative manangement, doesn't want to do a stress test Palpitations, occasional episodes, history of atrial fibrillation, better at this time, continue to montior 2D echo was done in October 2021 showing normal LV size with ejection fraction 60 to 65%, mild LVH, calcified mitral valve, mild aortic regurgitation, PA pressure 50 to 55 mmHg. CVA, MRI of the brain July 12, 2015 revealed subtle restricted diffusion in the left thalamus which may be secondary to acute or subacute ischemic event. 2- D echocardiogram was within normal limits, carotid duplex done July 2015 revealed mild nonobstructive disease bilaterally. Continue on current medications and monitor Paroxysmal atrial fibrillation-maintained on sotalol, continue to monitor. [id number] score of 5, yearly risk of stroke without oral anticoagulation 6.7 percent, maintained on Xarelto, continue to monitor Coronary artery disease-patient previously was a patient of Dr. Solitario's. Cardiac catheterization with Dr. Baldwin in 2011 revealing 30-40 percent lesion in the LAD, tortuous lesion with 160 turn in the mid followed by 270 turn in the distal, nonobstructive disease in the circumflex or RCA. Medical management recommended. Stress test was done in November 2018 showing no ischemia or infarction, Echo done in October 2018 showing normal LV size and function, EF 65 percent, mild mitral and tricuspid regurgitation, pulmonary hypertension with PA pressure of 55-60 mmHg. Patient has complex anatomy and significant tortuosity. Discussed possibility of repeating stress test, patient is asking to wait. Conservative management was recommended. Left lower extremity pain. Having hip pain and pain in her leg. ROB was done on September 19, 2021 and it was normal bilaterally with normal TBI and waveforms. Has chronic venous stasis changes. using compression socks, feeling better Mild bilateral carotid stenosis, last checkup was done in March 2022. Hypertension, reporting occasional hypotension We discussed holding hydrochlorothiazide and using it only if she is having edema not to exceed once a day Continue to monitor blood pressure Hyperlipidemia, lipid profile done on August 21, 2022 total cholesterol 187, HDL 93, triglyceride 84, LDL 77. Continue to monitor Peripheral edema-maintained on HCTZ 25 mg daily. Chronic right foot drop-underwent foot surgery September 2015. Chronic back pain, left hip pain, foot drop. Still having pain and using a walker Obesity, BMI 27, discussed weight loss SARATH FELDMAN MD Mar 13, 2023 12:45
--- NOTE | 2023-03-13 13:35 | Diagnostic Imaging Report ---
HISTORY: Chest pain. COMPARISON: 05/03/2022. TECHNIQUE: Frontal view of the chest. FINDINGS: There is chronic scarring in the mid lungs bilaterally with atelectasis at the left lung base. There is no large effusion or pneumothorax. There is increased perihilar airspace opacity, particularly on the right. There is cardiomegaly which appears mildly increased. Bone density appears diffusely low. IMPRESSION: 1. Increased perihilar airspace opacity, particularly on the right. This could be due to edema or infection. Recommend correlation with clinical findings and follow-up to resolution, or CT to exclude a neoplastic process. 2. Cardiomegaly, appears increased since the prior study. This may be differences in technique with the portable exam, but a pericardial effusion is not excluded. Dictated by: Dictated on workstation # [id number]
--- NOTE | 2023-03-13 14:17 | History & Physical-Hospitalist ---
NUNO RODRIGUEZ 03/13/23 1417: History of Present Illness HPI/Chief Complaint 77F w/ a history of A-fib and CAD presents w/ bradycardia, hypotension, hyponatr emia, and hyperkalemia. Pt states she failed to take her HCT earlier this week so took a laxative instead. She says she has then had persistent diarrhea since then. She states she woke up this morning with some abd pain and feeling weak, but it subsided. She then took her regular medications and began to feel very weak and light headed, so she sat down and called EMS. A nurse reports that when EMS arrived, her HR was around 30 and her BP was low. She was brought here and given Atropine, which brought her HR up to around 44. She was then given a host of tx to bring her HR and sodium up and potassium down. She denies chest pain, palpitations, SOB, N/V, and losing consciousness. Source: patient Exam Limitations: clinical condition Date Seen 03/13/23 Attending Physician Griffin Truong DO PCP Admitting Physician: Attending Physician: Referring Physician Date of Admission Home Medications & Allergies Home Medications Reviewed patient Home Medication Reconciliation performed by pharmacy medication reconciliations certified pest control technician and/or nursing. Patients Allergies have been reviewed. Allergies Allergies Coded Allergies azithromycin (Unverified Allergy, Unknown, Rash, 12/04/21) diltiazem (Verified Allergy, Unknown, 07/13/15) erythromycin base (Unverified Allergy, Unknown, 12/04/21) metronidazole (Verified Allergy, Unknown, 07/13/15) Past Hyooors-Mjjauq-Xuaypq Hx Patient Social History Marrital Status: single Tobacco Use?: No Smoking Status: Never a Smoker Substance use?: No Alcohol Use?: No Immunizations Up To Date Date of Influenza Vaccine: Mar 21, 2021 First/Initial COVID19 Vaccinat: 2020 Second COVID19 Vaccination Oliver: 2020 Hepatitis A: Yes Hepatitis B: Yes Date of Pneumonia Vaccine: Jun 21, 2015 Seasonal Allergies Seasonal Allergies: Yes Current Status Communicates: Verbally Primary Language: Bruneian Preferred Spoken Language: Bruneian Past Medical History Surgeries: Cardiac (catheters), Hysterectomy, Neurological (b/l carpal tunnel), Orthopedic (left knee and foot) Pneumonia, Sleep Apnea Currently Using CPAP: Yes Currently Using BIPAP: No Coronary Artery Disease, High Cholesterol, Hypertension, Irregular Heartbeat Neuropathy (feet) Sexually Transmitted Disease: No Bladder Infection, UTI-Chronic Gastroesophageal Reflux, Diverticulosis Degenerate Disk Disease, Arthritis, Foot Drop, Fractures Cataract Loss of Vision: Denies Hearing Impairment: Hard of Hearing Depression Psoriasis Blood Disorders: No (HX OF BLOOD CLOTS) Adverse Reaction/Blood Tranf: No Family Medical History Cardiovascular disease 19 MOTHER Completed stroke 19 MOTHER Diabetes mellitus 19 MOTHER FH: atrial fibrillation 19 FATHER FH: colon polyps G8 SISTER FH: kidney cancer 19 MOTHER FH: spinal stenosis 19 FATHER Hypertension 19 FATHER Thyroid disease G8 SISTER Heart Disease (mom, dad), Cancer (mom, kidney), Diabetes (mom), Hypertension (dad) Review of Systems Constitutional: No chills; weakness EENTM: No blurred vision, No double vision Respiratory: No cough, No hemoptysis, No short of breath Cardiovascular: No chest pain, No palpitations Gastrointestinal: abdominal pain; No constipation; diarrhea; No nausea, No v omiting Musculoskeletal: joint pain, neck pain Skin: change in color, other (psoriasis) Psychiatric/Neurological: Denies Anxiety, Denies Depressed; Headache Physical Exam Physical Exam Vital Signs Vital Signs - First Documented 03/13/23 11:55 Temp 36.9 Pulse 34 Resp 16 B/P (MAP) 123/53 (76) Pulse Ox 96 O2 Delivery Nasal Cannula O2 Flow Rate 2.00 Capillary Refill : Less Than 3 Seconds Height, Weight, BMI Height: 5'1.00" Weight: 232lbs. 0.0oz. [id number]; BMI Method: General Appearance: No Apparent Distress, WD/WN HEENT: PERRL/EOMI; No Scleral Icterus (L), No Scleral Icterus (R) Neck: Normal Inspection, Non Tender; No JVD Respiratory: Lungs Clear, Normal Breath Sounds, No Accessory Muscle Use, No Respiratory Distress, Other (was shaky and tachypnic from albuterol tx) Cardiovascular: No JVD, No Murmur, Bradycardia Gastrointestinal: Soft; No Distended, No Guarding, No Rebound; Tenderness (diffuse, rated 2/5 when getting albuterol tx and rating with one hand) Neurologic/Psychiatric: Alert, Oriented x3 Skin: Cool, Pallor (minimal), Other (psoriasis) Results Results/Procedures Labs Laboratory Tests 03/13/23 12:00 Patient resulted labs reviewed. Assessment/Plan Assessment and Plan Sick Sinus Syndrome Consult cardiology and make pt NPO in case pacemaker needs to be inserted Hold Xarelto Hold Sotalol Hold Isorbide Mononitrate Hyperkalemia Hold K+ supplement Hypovolemic hyponatremia IV fluids of normal saline BMP this evening CAD and HTN Hold HCT Hyperlipidemia Continue Atorvastatin 10mg PO GERD Continue Omeprazole 40mg PO CHAKA APPIAH MD 03/13/23 1453: History of Present Illness Time Seen by a Provider: 13:45 Past Hwjrzaz-Ugmlmu-Kbkrbq Hx Family Medical History Cardiovascular disease 19 MOTHER Completed stroke 19 MOTHER Diabetes mellitus 19 MOTHER FH: atrial fibrillation 19 FATHER FH: colon polyps G8 SISTER FH: kidney cancer 19 MOTHER FH: spinal stenosis 19 FATHER Hypertension 19 FATHER Thyroid disease G8 SISTER Assessment/Plan Admission Diagnosis Bradycardia Admission Status: Inpatient Order (span 2 midnights) Reason for Inpatient Admission: see below Supervisory-Addendum Brief Verification & Attestation Participated in pt care: history, MDM, physical Personally performed: exam, history, MDM, supervision of care Care discussed with: Medical Student Procedures: n/a Results interpretation: Verified all documentation Verification and Attestation of Medical Student E/M Service A medical student performed and documented this service in my presence. I reviewed and verified all information documented by the medical student and made modifications to such information, when appropriate. I personally performed the physical exam and medical decision making. Chaka Appiah, Mar 13, 2023,14:52 NUNO RODRIGUEZ Mar 13, 2023 14:17 CHAKA APPIAH MD Mar 13, 2023 14:53
[2023-03-13] MEDS ORDERED: ONDANSETRON INJECTION 4 MG/2 ML (SDV) IV PRN (14:30)
[2023-03-13] MEDS ORDERED: LACTULOSE SYRUP 10GM/15ML 30ML UDC PO PRN (14:30)
[2023-03-13] MEDS ORDERED: NS IV 1000 ML 1,000 ML IV SCH ×2 (14:30→17:15)
[2023-03-13] MEDS ORDERED: CALCIUM CARBONATE 500 MG CHEW TABLET PO PRN (14:30)
[2023-03-13] MEDS ORDERED: HEParin (CATH LAB) 1,000 ML IV ONE (14:36)
[2023-03-13] MEDS ORDERED: LIDOCAINE 1% INJ 20 ML VIAL ONE (14:36)
[2023-03-13] MEDS ORDERED: NS IV 1000 ML 2,000 ML ONE (14:36)
[2023-03-13] MEDS ORDERED: ceFAZolin INJECTION 1,000 MG ONE (14:39)
[2023-03-13 15:19] VITALS: BP 92/87
[2023-03-13] MEDS ORDERED: fentaNYL INJECTION 100 MCG/2 ML VIAL ONE (15:32)
[2023-03-13] MEDS ORDERED: MIDAZOLAM INJ 5 MG/5 ML VIAL ONE (15:33)
--- NOTE | 2023-03-13 17:12 | Cardiac Procedure Note-CS/ASA ---
Pre-Procedure Note Pre-Op Procedure Note Date of Available H&P: Mar 13, 2023 Date H&P Reviewed: Mar 13, 2023 Time H&P Reviewed: 15:00 History & Physical: H&P Reviewed, Patient Examed, No changes noted Pre-Operative Diagnosis: Bradycardia Moderate Sedation PreProcedure Time 15:00 ASA Score 3 Airway Lungs Heart ASA score ASA 1: a normal healthy patient ASA 2: a patient with a mild systemic disease (mid diabetes, controlled hypertension, obesity ASA 3: a patient with a severe systemic disease that limits activity (angina, COPD, prior Myocardial infarction) ASA 4: a patient with an incapacitating disease that is a constant threat to life (CHF, renal failure) ASA 5: a moribund patient not expected to survive 24 hrs. (ruptured aneurysm) ASA 6: a declared brain- patient whose organs are being harvested. For emergent operations, add the letter E after the classification Mallampati Classification Grade 3 Sedation Plan Analgesia, Amnesia, Plan communicated to team members, Discussed options with patient/fam, Discussed risks with patient/fam The patient is an appropriate candidate to undergo the planned procedure, sedation, and anesthesia. The patient immediately re-assessed prior to indication. SARAHT FELDMAN MD Mar 13, 2023 17:12
[2023-03-13] MEDS ORDERED: PATIENT MAY USE OWN MEDS, ALL PO SCH (17:15)
--- NOTE | 2023-03-13 17:17 | Permanent Pacemaker Implant ---
Dual Chamber Pacemaker Implant PROCEDURE PHYSICIAN: Saraht Reid DUAL CHAMBER PACEMAKER IMPLANTATION: DATE OF PROCEDURE: 03/13/23 INDICATION: Symptomatic bradycardia PREOPERATIVE DIAGNOSIS: Sinus node dysfunction POSTOPERATIVE DIAGNOSIS: Sinus node dysfunction HISTORY: Dual-chamber permanent pacemaker was recommended. PROCEDURE PERFORMED: 1. Dual-chamber permanent pacemaker implantation. 2. Fluoroscopy. 3. Central venous access. ANESTHESIA: Local anesthesia, conscious sedation. COMPLICATIONS: None. ESTIMATED BLOOD LOSS:20 mL. SPECIMENS: None. ORAL ANTICOAGULATION: None. FLUOROSCOPY TIME: FLUOROSCOPY DOSE: CONTRAST DOSE: PROCEDURE DETAILS: The patient is a 77 female with paroxysmal atrial fibrillation, admitted with severe bradycardia, has sinus node dysfunction with sinus exit block. Symptomatic. Started on beta agonist drip and scheduled for dual-chamber pacemaker implantation. And after all of the patients questions were answered, the patient was brought to the EP Lab. The patient's left chest was prepped and draped in sterile fashion. A 2 inch horizontal incision was made 1 cm below the clavicle and dissection carried down to the pectoralis fascia. Using the modified Seldinger technique and under fluoroscopy guidance, the anterior aspect of the left axillary vein was accessed 2 times. The J wires were secured to the drapes with a mosquito clamp. A 7-[place] sheath was introduced over one of the J-wires. The RV lead was then inserted. The RV lead was directed across the tricuspid valve to the apical septal portion of the right ventricle. The position was checked in [place] and [place] views. The screw was deployed and the lead connected to the programmer or analyst. Close sensing and pacing thresholds were obtained. Diaphragmatic pacing was ruled out. The lead was secured with 2-0 silk ties to the underlying muscle and fascia. Next, a 7-[place] Citizen sheath was introduced through the remaining J-wire. An atrial lead was then introduced and guided to the level of the right appendage. The screw was deployed and the lead was connected to the interrogator. Good sensing and pacing thresholds were obtained. Diaphragmatic pacing was ruled out. The leads were secured with 2-0 silk ties to the underlying muscle and fascia. The leads were connected to the device in a hermetic fashion. The device and leads were placed in the pocket. Aggressive irrigation with saline solution was done. The device was secured to the underlying muscle and fascia with a 2-0 silk tie. interrogation of the device revealed good integrity of all the leads and good connections. The wound was then closed using 2 layers. The first layer was interrupted 2-0 absorbable Vicryl suture. The last layer was a single subcuticular layer with 4- 0 Vicryl suture. Half inch Steri-Strips and a small dressing were then applied to the wound. The patient tolerated the procedure well and was returned to the recovery room in stable condition with stable vital signs. DEVICE INFORMATION: KE XT DR MRI [id number] RA LEAD: [id number] RV LEAD: [id number] PER-OPERATIVE DEVICE INTERROGATION: Good sensing and capture activity IMMEDIATE POSTOPERATIVE DEVICE INTERROGATION: Right atrium, threshold 0.4 ms at 2.2 V. Impedance 665, P wave 1.1 mV Right ventricle 0.4 ms at 1 V, impedance 772, R wave 5.6 mV PLAN: The patient transferred to the ICU. We will continue with two more doses of IV antibiotics. We will check a chest x-ray and interrogate the device in the morning. The patient will continue on oral antibiotics for 5 days. CONCLUSION: Successful dual-chamber pacemaker implantation with no complications FINAL DIAGNOSIS: Sinus node dysfunction Sinus bradycardia Paroxysmal atrial fibrillation Hypertension SARATH REID MD Mar 13, 2023 17:17
--- NOTE | 2023-03-13 17:45 | Diagnostic Imaging Report ---
CHEST 1 VIEW, AP/PA ONLY INDICATION: Pacemaker placement. COMPARISON: 03/13/2023. FINDINGS: Left pectoral transvenous pacemaker has leads overlying the right atrium and right ventricle. Midlung zone atelectasis is present on both sides. No pleural effusion or pneumothorax. Stable cardiomegaly. IMPRESSION: 1. Well-positioned left pectoral pacemaker with intact leads. 2. No pneumothorax after pacemaker insertion. Dictated by: Dictated on workstation # [id number]
[2023-03-13 18:35] LABS: CALCIUM 9.8 MG/DL (8.5-10.1)
[2023-03-13 18:39] LABS: CREATININE SERUM 0.75 MG/DL (0.60-1.30)
[2023-03-13] MEDS ORDERED: ACETAMINOPHEN 325 MG TABLET PO ONE (21:15)
--- NOTE | 2023-03-13 21:15 | Tele-ICU Progress Note ---
Progress Note RN called with Pt c/o pain at pacemeker insertion site. Earlier pt had some oozing of blood, pressure and sand bag applied. Pt currently requesting pain meds. Tylenol 650 mg x 1 ordered. No further oozing or any significant hematoma per nursing and contract design agent aware. d/w the bedside nurse. Interventions Intermediate-Pain - evaluation and management Focused Exam Height, Weight, BMI Height: 5'1.00" Weight: 232lbs. 0.0oz. 105.964702kj; 26.46 BMI Method: NICOLE VILLALPANDO MD Mar 13, 2023 21:15
[2023-03-13] MEDS: ceFAZolin INJECTION 1,000 MG in NS (IVPB) 50 ML 50 ML IV SCH (21:32)
[2023-03-13] MEDS: SOTALOL 80 MG TABLET PO SCH (21:32)
[2023-03-13] MEDS: RT-LEVALBUTEROL 1.25 MG/3 ML NEBS (NON-FORMULARY) INH SCH (22:01)
[2023-03-14 05:22] LABS: HEMATOCRIT 33 % (35-52); HEMOGLOBIN 11.4 g/dL (11.5-16.0); MEAN CORPUSCULAR HEMOGLOBIN 31 pg (25-34); MEAN CORPUSCULAR HGB CONC 34 g/dL (32-36); MEAN CORPUSCULAR VOLUME 92 fL (80-99); MEAN PLATELET VOLUME 10.2 fL (9.0-12.2); PLATELET COUNT 195 10^3/uL (130-400); WHITE BLOOD COUNT 6.6 10^3/uL (4.3-11.0)
[2023-03-14 05:38] LABS: ALBUMIN 2.9 GM/DL (3.2-4.5); POTASSIUM 4.8 MMOL/L (3.6-5.0)
[2023-03-14 05:39] LABS: CALCIUM 8.5 MG/DL (8.5-10.1)
[2023-03-14 05:41] LABS: TOTAL PROTEIN 5.3 GM/DL (6.4-8.2)
[2023-03-14 05:42] LABS: BILIRUBIN,TOTAL 0.3 MG/DL (0.1-1.0)
[2023-03-14 05:44] LABS: CREATININE SERUM 0.69 MG/DL (0.60-1.30)
[2023-03-14] MEDS: ceFAZolin INJECTION 1,000 MG in NS (IVPB) 50 ML 50 ML IV SCH ×2 (05:59→14:39)
[2023-03-14] MEDS: RT-LEVALBUTEROL 1.25 MG/3 ML NEBS (NON-FORMULARY) INH SCH ×2 (07:35→20:27)
[2023-03-14] MEDS: SOTALOL 80 MG TABLET PO SCH ×2 (08:32→19:50)
--- NOTE | 2023-03-14 09:55 | Cardiology Progress Note ---
Subjective Date Seen by Provider: Mar 14, 2023 Time Seen by Provider: 09:53 Subjective/Events-last exam Patient was seen at bedside, laying down comfortably, feeling well. Still having some generalized weakness Review of Systems General: No Chills, No Night Sweats, No Fatigue, No Malaise, No Appetite, No Other HEENT: No Head Aches, No Visual Changes, No Eye Pain, No Ear Pain, No Dysphasia, No Sinus Congestion, No Post Nasal Drip, No Sore Throat, No Other Pulmonary: No Dyspnea, No Cough, No Pleuritic Chest Pain, No Other Cardiovascular: No: Chest Pain, Palpitations, Orthopnea, Paroxysmal Noc. Dyspnea, Edema, Lt Headedness, Other Objective-Cardiology Exam Last Set of Vital Signs Vital Signs 03/13/23 03/14/23 03/14/23 15:19 07:41 09:00 Temp 36.2 Pulse 60 Resp 16 B/P (MAP) 161/67 (98) Pulse Ox 99 O2 Delivery Nasal Cannula O2 Flow Rate 2.00 FiO2 28 I&O Intake and Output 03/14/23 00:00 Intake Total 3340 ml Output Total 1600 ml Balance 1740 ml Intake Oral 240 ml IV Total 3100 ml Output Urine Total 1600 ml Daily Weight Change No General: Alert, Oriented X3, Cooperative HEENT: Atraumatic, PERRLA Neck: Supple, No JVD, No Thyromegaly Lungs: Clear to Auscultation, Normal Air Movement Heart: Regular Rate, Normal S1, Normal S2, Other (Systolic murmur at the left sternal border) Abdomen: Normal Bowel Sounds, Soft, No Tenderness, No Hepatosplenomegaly, No Masses Extremities: No Clubbing, No Cyanosis, No Edema, Normal Pulses, No Tenderness/Swelling Skin: No Rashes, No Breakdown, No Significant Lesion Neuro: Normal Gait, Normal Speech, Strength at 5/5 X4 Ext, Normal Tone, Sensation Intact Psych/Mental Status: Mental Status NL, Mood NL Results Lab Laboratory Tests 03/13/23 12:00 03/13/23 18:13 03/14/23 04:33 A/P-Cardiology Admission Diagnosis Bradycardia Complete heart block PAF CP Assessment/Plan Symptomatic bradycardia, escape junctional rhythm Complete heart block Status post dual-chamber pacemaker implantation on March 13, 2023 Recovering well, small hematoma at the pacemaker site. Contained. Continue to monitor Okay for discharge or transfer to acute rehab and follow-up as an outpatient in 1 week Chest pain, nonspecific etiology, still having occasional chest discomfort Requesting conservative manangement, doesn't want to do a stress test Palpitations, occasional episodes, history of atrial fibrillation, better at this time, continue to montior 2D echo was done in October 2021 showing normal LV size with ejection fraction 60 to 65%, mild LVH, calcified mitral valve, mild aortic regurgitation, PA pressure 50 to 55 mmHg. CVA, MRI of the brain July 12, 2015 revealed subtle restricted diffusion in the left thalamus which may be secondary to acute or subacute ischemic event. 2- D echocardiogram was within normal limits, carotid duplex done July 2015 rev ealed mild nonobstructive disease bilaterally. Continue on current medications and monitor Paroxysmal atrial fibrillation-maintained on sotalol, continue to monitor. [id number] score of 5, yearly risk of stroke without oral anticoagulation 6.7 percent, maintained on Xarelto, continue to monitor Coronary artery disease-patient previously was a patient of Dr. Solitario'magen. Cardiac catheterization with Dr. Baldwin in 2011 revealing 30-40 percent lesion in the LAD, tortuous lesion with 160 turn in the mid followed by 270 turn in the distal, nonobstructive disease in the circumflex or RCA. Medical management recommended. Stress test was done in November 2018 showing no ischemia or infarction, Echo done in October 2018 showing normal LV size and function, EF 65 percent, mild mitral and tricuspid regurgitation, pulmonary hypertension with PA pressure of 55-60 mmHg. Patient has complex anatomy and significant tortuosity. Discussed possibility of repeating stress test, patient is asking to wait. Con servative management was recommended. Left lower extremity pain. Having hip pain and pain in her leg. ROB was done on September 19, 2021 and it was normal bilaterally with normal TBI and waveforms. Has chronic venous stasis changes. using compression socks, feeling better Mild bilateral carotid stenosis, last checkup was done in March 2022. Hypertension, reporting occasional hypotension We discussed holding hydrochlorothiazide and using it only if she is having edema not to exceed once a day Continue to monitor blood pressure Hyperlipidemia, monitor lipids Peripheral edema-maintained on HCTZ 25 mg daily. Chronic right foot drop-underwent foot surgery September 2015. Chronic back pain, left hip pain, foot drop. Still having pain and using a walker Obesity, BMI 27, discussed weight loss SARATH FELDMAN MD Mar 14, 2023 09:55
--- NOTE | 2023-03-14 10:46 | Occupational Therapy Eval ---
OT Evaluation-General/PLF Medical Diagnosis Admission Date Mar 13, 2023 at 14:17 Medical Diagnosis: PPM placed Onset Date: Mar 13, 2023 Therapy Diagnosis Therapy Diagnosis: weakness Height/Weight Height (Feet): 5 Height (Inches): 1.00 Weight (Pounds): 232 Weight (Ounces): 0.0 Precautions Precautions/Isolations: Fall Prevention, Standard Precautions Weight Bear Status LUE PPM RESTRICTIONS> SLING Referral Referral Reason: Evaluation/Treatment Medical History Pertinent Medical History: Arthritis, CAD, GERD, HTN Reviewed History: Yes Social History Home: Single Level ADL-Prior Level of Function SCALE: Activities may be completed with or without assistive devices. 6-Fvjsugqzdc-kowzwix completes the activity by him/herself with no assistance from a helper. 5-Set-up or Clean-up Assistance-helper sets up or cleans up; patient completes activity. [place] assists only prior to or following the activity. 4-Supervision or Touching Assistance-helper provides verbal cues and/or touching/steadying and/or contact guard assistance as patient completes activity. Assistance may be provided throughout the activity or intermittently. 3-Partial/Moderate Assistance-helper does LESS THAN HALF the effort. [place] lifts, holds or supports trunk or limbs, but provides less than half the effort. 2-Substantial/Maximal Assistance-helper does MORE THAN HALF the effort. [place] lifts or holds trunk or limbs and provides more than half the effort. 9-Utkfsfden-mliqzk does ALL the effort. Patient does none of the effort to complete the activity. Or, the assistance of 2 or more helpers is required for the patient to complete the activity. If activity was not attempted, code reason: 7-Patient Refused. 9-Not Applicable-not attempted and the patient did not perform the activity before the current illness, exacerbation or injury. 10-Not Attempted due to Environmental Limitations-(lack of equipment, weather restraints, etc.). 88-Not Attempted due to Medical Conditions or Safety Concerns. Self Care: Independent Functional Cognition: Independent Drive Self: Yes OT Current Status Subjective AGREEABLE TO PARTICIPATE IN THERAPY Pain Numeric Pain Scale: 4 Location: Left Location Body Site: Breast Pain Description: Stabbing Mental Status/Objective Patient Orientation: Person, Place, Time, Situation Attachments: Espinoza Catheter, SCD's, Telemetry Current Hand Dominance: Right Upper Extremity ROM LUE RESTRICTED D/T PPM, RUE WFLS FOR ADLS Upper Extremity Coordination FAIR Upper Extremity Strength 3/5 DOES NOT STAND ERECT, SHAKING HANDS AND SLOW UNSAFE PROBLEM SOLVING TO INITIATE MOBILIZATION ADL-Treatment Eating (QC): 6 Oral Hygiene (QC): 5 Shower/Bathe Self (QC): 88 Upper Body Dressing (QC): 4 Lower Body Dressing (QC): 3 On/Off Footwear (QC): 4 Toileting Hygiene (QC): 3 Education OT Patient Education: Correct positioning, Modified ADL techniques, Progress toward Goal/Update tx plan, Purpose of tx/functional activities, Reviewed precautions, Rehab process, Safety issues, Transfer techniques, Use of adapted equipment Teaching Recipient: Patient Teaching Methods: Demonstration, Discussion Response to Teaching: Verbalize Understanding, Unable to Return Demonstration, Reinforcement Needed OT Custodial Goals Gold Prospector Goals Eating (QC): 6 Oral Hygiene (QC): 6 Toileting Hygiene (QC): 6 Shower/Bathe Self (QC): 6 Upper Body Dressing (QC): 6 Lower Body Dressing (QC): 6 On/Off Footwear (QC): 6 1=Demonstrate adherence to instructed precautions during ADL tasks. 2=Patient will verbalize/demonstrate understanding of assistive devices/modifications for ADL. 3=Patient will improve strength/tolerance for activity to enable patient to perform ADL's. OT Education/Plan Problem List/Assessment Assessment: Decreased Activ Tolerance, Decreased Safety Aware, Decreased UE Strength, Impaired Bed Mobility, Impaired Cognition, Impaired Coordination, Impaired Funct Balance, Impaired Self-Care Skills, Restricted Funct UE ROM Discharge Recommendations Plan/Recommendations: Continue POC Therapy Discharge Recommendati: Post Acute OT Treatment Plan/Plan of Care Treatment,Training & Education: Yes Patient would benefit from OT for education, treatment and training to promote independence in ADL's, mobility, safety and/or upper extremity function for ADL's. Plan of Care: ADL Retraining, Functional Mobility, Group Exercise/Act as Ind, UE Funct Exercise/Act, UE Neuromus Re-Ed/Coord Treatment Duration: Mar 21, 2023 Frequency: 3 times per week Estimated Hrs Per Day: .25 hour per day Agreement: Yes Rehab Potential: Guarded Time Start Time: 09:15 Stop Time: 09:38 DATE: Mar 14, 2023 Total Time Billed (hr/min): 23 Billed Treatment Time EVM, ADL 23 MIN DRINNEN,BLAINE OT Mar 14, 2023 10:46
--- NOTE | 2023-03-14 10:47 | Physical Therapy Evaluation ---
PT Evaluation-General Medical Diagnosis Admission Date Mar 13, 2023 at 14:17 Medical Diagnosis: bradycardia/A-fib/chest pain Onset Date: Mar 13, 2023 Therapy Diagnosis Therapy Diagnosis: generalized weakness/impaired mobility. Height/Weight Height (Feet): 5 Height (Inches): 1.00 Weight (Pounds): 232 Weight (Ounces): 0.0 Precautions Precautions/Isolations: Standard Precautions Referral Physician: Td Reason for Referral: Evaluation/Treatment Medical History Pertinent Medical History: Arthritis, CAD, GERD, HTN Current History EMS secondary to generalized weakness, lightheadedness, chest pain Reviewed History: Yes Social History Home: Apartment Current Living Status: Alone Entry Into Home: Level Entry Prior Prior Level of Function SCALE: Activities may be completed with or without assistive devices. 0-Zqhoavsrjq-cwdjhil completes the activity by him/herself with no assistance from a helper. 5-Set-up or Clean-up Assistance-helper sets up or cleans up; patient completes activity. [place] assists only prior to or following the activity. 4-Supervision or Touching Assistance-helper provides verbal cues and/or touching/steadying and/or contact guard assistance as patient completes activity. Assistance may be provided throughout the activity or intermittently. 3-Partial/Moderate Assistance-helper does LESS THAN HALF the effort. [place] lifts, holds or supports trunk or limbs, but provides less than half the effort. 2-Substantial/Maximal Assistance-helper does MORE THAN HALF the effort. [place] lifts or holds trunk or limbs and provides more than half the effort. 9-Kscasljtr-hswmas does ALL the effort. Patient does none of the effort to complete the activity. Or, the assistance of 2 or more helpers is required for the patient to complete the activity. If activity was not attempted, code reason: 7-Patient Refused. 9-Not Applicable-not attempted and the patient did not perform the activity before the current illness, exacerbation or injury. 10-Not Attempted due to Environmental Limitations-(lack of equipment, weather restraints, etc.). 88-Not Attempted due to Medical Conditions or Safety Concerns. Bed Mobility: 6 Transfers (B,C,W/C): 6 Gait: 6 Stairs: 9 Indoor Mobility (Ambulation): Independent Prior Devices Use: Walker PT Evaluation-Current Subjective Patient agrees to PT. Recent pacemaker placement with restrictions left UE of no pushing or pulling over 5# and not lifting her left UE over head. Patient has difficulty with complying with this. Patient is very talkative. ROM/Strength ROM Lower Extremities bilateral LE WFL Strength Lower Extremities 3-/5 grossly bilateral LE Integumentary/Posture Bladder Incontinence: Espinoza Cath Posture kyphotic Neuromuscular (Tone, Coordination, Reflexes) severely diminished coordination due to weakness Sensory Vision: Functional Hearing: Functional Transfers Lying to Sitting/Side of Bed(Q: 3 Sit to Stand (QC): 3 Chair/Nya-le-Qafls Xfer(QC): 3 mod assist with mobility Gait Mode of Locomotion: Walk Anticipated Mode of Locomotion: Walk Walk 10 feet (QC): 3 Walk 50 ft with 2 Turns(QC): 88 Walk 150 ft (QC): 88 Distance: 15' Gait Assistive Device: Cane Single Point Comments/Gait Description very unsteady, shaky, required mod assist for balance and safety Balance Sitting Static: Fair Sitting Dynamic: Fair Standing Static: Poor Standing Dynamic: Poor Assessment/Needs Patient will benefit from skilled PT to address functional strength and mobility to improve current LOF to safely return to home at maximum LOF. Patient is currently not safe to return to home due to impaired mobility and weakness. Physician notified. Rehab Potential: Fair PT Fdc Goals Supervisor [employer] Goals PT Fdc Goals Time Frame: Mar 29, 2023 Roll Left & Right (QC): 6 Sit to Lying (QC): 6 Lying-Sitting on Side/Bed(QC): 6 Sit to Stand (QC): 6 Chair/Cus-qd-Zntcl Xfer(QC): 6 Toilet Transfer (QC): 6 Walk 10 feet (QC): 6 Walk 50ft with 2 Turns (QC): 6 Walk 150 ft (QC): 6 PT Plan Problem List Problem List: Activity Tolerance, Functional Strength, Safety, Balance, Gait, Transfer, Bed Mobility Treatment/Plan Treatment Plan: Continue Plan of Care Treatment Plan: Bed Mobility, Education, Functional Activity Micheline, Functional Strength, Gait, Safety, Therapeutic Exercise, Transfers Treatment Duration: Mar 29, 2023 Frequency: 6 times per week Estimated Hrs Per Day: .25 hour per day Patient and/or Family Agrees t: Yes Discharge Recommendations Therapy Discharge Recommendati: Post Acute PT Time Time In: 915 Time Out: 938 DATE: Mar 14, 2023 Total Billed Treatment Time: 23 Total Billed Treatment 1 visit EVModC 10 min GT 13 min JONAH CASTILLO PT Mar 14, 2023 10:47
--- NOTE | 2023-03-14 11:28 | Progress Note - Hospitalist ---
NUNO RODRIGUEZ 03/14/23 1128: Subjective HPI/CC On Admission 77F w/ a history of A-fib and CAD presents w/ bradycardia, hypotension, hyponatremia, and hyperkalemia. Pt states she failed to take her HCT earlier this week so took a laxative instead. She says she has then had persistent diarrhea since then. She states she woke up this morning with some abd pain and feeling weak, but it subsided. She then took her regular medications and began to feel very weak and light headed, so she sat down and called EMS. A nurse reports that when EMS arrived, her HR was around 30 and her BP was low. She was brought here and given Atropine, which brought her HR up to around 44. She was then given a host of tx to bring her HR and sodium up and potassium down. She denies chest pain, palpitations, SOB, N/V, and losing consciousness. Subjective/Events-last exam 77F presents post pacemaker insertion, says she feels better, is no longer feeling weak, lethargic, dizzy, or confused. Pt ate a normal diet this morning. Pt states her abd feels better. Nurse says the pt had a good night other than the pacemaker site bleeding and needing to be sandbagged, which stopped the bleeding. There is bruising around the pacemaker site. Pt has not had a BM since a loose, brown, non-bloody one yesterday. Pt is not ambulating well enough to return home yet but will see if she can get into inpatient rehab. Review of Systems General: No Chills, No Night Sweats HEENT: No Head Aches, No Visual Changes Pulmonary: No Dyspnea, No Cough Cardiovascular: No: Chest Pain, Palpitations Gastrointestinal: Abdominal Pain (LUQ); No: Nausea, Vomiting, Melena, Hematochezia Genitourinary: No Dysuria, No Hematuria Neurological: Weakness, Numbness (feet b/l) Objective Exam Vital Signs Vital Signs Date Time Temp Pulse Resp B/P (MAP) Pulse Ox O2 Delivery O2 Flow Rate FiO2 03/14/23 11:00 69 11 166/77 (142) 95 Nasal Cannula 2.00 03/14/23 07:41 36.2 03/13/23 15:19 28 Capillary Refill : Less Than 3 Seconds General Appearance: No Apparent Distress, WD/WN HEENT: PERRL/EOMI; No Scleral Icterus (L), No Scleral Icterus (R) Neck: Non Tender; No JVD Respiratory: Lungs Clear, Normal Breath Sounds, No Accessory Muscle Use, No Respiratory Distress Cardiovascular: Regular Rate, Rhythm, No Murmur Gastrointestinal: Soft; No Distended, No Guarding; Tenderness (LUQ) Extremity: Normal Inspection, No Pedal Edema Neurologic/Psychiatric: Alert, Oriented x3 (name, place, year) Skin: Normal Color, Warm/Dry Results/Procedures Lab Laboratory Tests 03/13/23 12:00 03/13/23 18:13 03/14/23 04:33 Patient resulted labs reviewed. Assessment/Plan Assessment and Plan Assess & Plan/Chief Complaint Sick Sinus Syndrome Pacemaker inserted Hold Xarelto another 2-3 days Resumed Sotalol per Dr. Reid Hold Isorbide Mononitrate Hyperkalemia Resolved Hold K+ supplement Hypovolemic hyponatremia Resolved CAD and HTN Hold HCT Hyperlipidemia Continue Atorvastatin 10mg PO GERD Continue Omeprazole 40mg PO Weakness The patient will see PT and be evaluated for candidacy for inpatient rehab LUQ abd pain Continue monitoring CHAKA APPIAH MD 03/14/23 1441: Assessment/Plan Assessment and Plan Assess & Plan/Chief Complaint Patient reports some pain under her incision site. Had some bleeding overnight but has since resolved. Dr Reid saw this morning and okayed for DC from cardiac standpoint but after working with PT she did not seem appropriate for DC straight home. Would be a good candidate for IRF given acuity of her illness and new limitations to functional status due to precautions with pacemaker insertion. She also lives on her own which makes DC straight to home more concerning. IRF consult placed. Continue her home meds as appropriate. Transfer to 4th floor. Supervisory-Addendum Brief Verification & Attestation Participated in pt care: history, MDM, physical Personally performed: exam, history, MDM, supervision of care Care discussed with: Medical Student Procedures: n/a Results interpretation: Verified all documentation Verification and Attestation of Medical Student E/M Service A medical student performed and documented this service in my presence. I reviewed and verified all information documented by the medical student and made modifications to such information, when appropriate. I personally performed the physical exam and medical decision making. Chaka Appiah, Mar 14, 2023,14:36 NUNO RODRIGUEZ Mar 14, 2023 11:28 CHAKA APPIAH MD Mar 14, 2023 14:41
[2023-03-14] MEDS: ACETAMINOPHEN 325 MG TABLET PO PRN ×2 (13:27→22:28)
[2023-03-14 15:17] VITALS: BP 156/73
[2023-03-14 19:44] VITALS: BP 179/71
[2023-03-14] MEDS: CEPHALEXIN 250 MG CAPSULE PO SCH (19:49)
[2023-03-14] MEDS: MELATONIN 3 MG TABLET PO PRN (22:27)
[2023-03-14 23:08] VITALS: BP 149/65
[2023-03-15 03:45] VITALS: BP 131/62
[2023-03-15 05:46] LABS: HEMATOCRIT 36 % (35-52); HEMOGLOBIN 12.3 g/dL (11.5-16.0); MEAN CORPUSCULAR HEMOGLOBIN 31 pg (25-34); MEAN CORPUSCULAR HGB CONC 34 g/dL (32-36); MEAN CORPUSCULAR VOLUME 91 fL (80-99); MEAN PLATELET VOLUME 9.7 fL (9.0-12.2); PLATELET COUNT 196 10^3/uL (130-400)
[2023-03-15 05:56] LABS: POTASSIUM 4.2 MMOL/L (3.6-5.0)
[2023-03-15 05:57] LABS: CALCIUM 8.7 MG/DL (8.5-10.1)
[2023-03-15 06:02] LABS: CREATININE SERUM 0.52 MG/DL (0.60-1.30)
[2023-03-15] MEDS: RT-LEVALBUTEROL 1.25 MG/3 ML NEBS (NON-FORMULARY) INH SCH ×2 (07:08→18:35)
[2023-03-15 07:57] VITALS: BP 175/66
[2023-03-15] MEDS: CEPHALEXIN 250 MG CAPSULE PO SCH ×2 (08:58→19:36)
[2023-03-15] MEDS: SOTALOL 80 MG TABLET PO SCH ×2 (09:01→19:36)
--- NOTE | 2023-03-15 09:34 | Physical Therapy Daily Note ---
PT Daily Note-Current Subjective Pt has been transferred to [facility]. She is in the bed on arrival, finishing her breakfast. She was eager to get up and walk. Pain Section J - Health Conditions 1. Rarely or not at all 2. Occasionally 3. Frequently 4. Almost constantly 8. Unable to answer Pain Effect on Sleep: 1 Pain Interference with Therapy: 1 Pain Interference w/Day-to-Day: 1 Mental Status Patient Orientation: Person, Place Attachments: Espinoza Catheter Transfers SCALE: Activities may be completed with or without assistive devices. 2-Oyjtsurbqw-hskzfxs completes the activity by him/herself with no assistance from a helper. 5-Set-up or Clean-up Assistance-helper sets up or cleans up; patient completes activity. [place] assists only prior to or following the activity. 4-Supervision or Touching Assistance-helper provides verbal cues and/or touching/steadying and/or contact guard assistance as patient completes activity. Assistance may be provided throughout the activity or intermittently. 3-Partial/Moderate Assistance-helper does LESS THAN HALF the effort. [place] lifts, holds or supports trunk or limbs, but provides less than half the effort. 2-Substantial/Maximal Assistance-helper does MORE THAN HALF the effort. [place] lifts or holds trunk or limbs and provides more than half the effort. 9-Xgxmwpgmx-fpilmt does ALL the effort. Patient does none of the effort to complete the activity. Or, the assistance of 2 or more helpers is required for the patient to complete the activity. If activity was not attempted, code reason: 7-Patient Refused. 9-Not Applicable-not attempted and the patient did not perform the activity before the current illness, exacerbation or injury. 10-Not Attempted due to Environmental Limitations-(lack of equipment, weather restraints, etc.). 88-Not Attempted due to Medical Conditions or Safety Concerns. Roll Left & Right (QC): 6 Sit to Lying (QC): 6 Lying to Sitting/Side of Bed(Q: 6 Sit to Stand (QC): 5 Weight Bearing Cannot use the (L) UE Gait Training Does the Patient Walk?: Yes Distance: 40ft Walk 10 feet (QC): 6 Gait Persons Needed: 1 Gait Assistive Device: Cane Single Point Pt takes small steps. She showed good stability during gait today. Wheelchair Training Does the Pt Use a Wheelchair?: No Exercises Seated Therapy Exercises: LE Protocol Seated Reps: 15 Assessment Current Status: Good Progress Pt showed good safety with transfers and gait. She requested to return to the recliner after gait. She was seated in the chair with the call light, phone, water, and personal effects. PT Care Home Goals [employer]ade Cl[employer] Finisher Goals PT Shade Cl[employer] Finisher Goals Time Frame: Mar 29, 2023 Roll Left & Right (QC): 6 Sit to Lying (QC): 6 Lying-Sitting on Side/Bed(QC): 6 Sit to Stand (QC): 6 Chair/Dba-aq-Jrfzd Xfer(QC): 6 Toilet Transfer (QC): 6 Walk 10 feet (QC): 6 Walk 50ft with 2 Turns (QC): 6 Walk 150 ft (QC): 6 PT Plan Treatment/Plan Treatment Plan: Continue Plan of Care Treatment Plan: Bed Mobility, Education, Functional Activity Micheline, Functional Strength, Gait, Safety, Therapeutic Exercise, Transfers Treatment Duration: Mar 29, 2023 Frequency: 6 times per week Estimated Hrs Per Day: .25 hour per day Patient and/or Family Agrees t: Yes Time Time In: 824 Time Out: 839 DATE: Mar 15, 2023 Total Billed Treatment Time: 15 Total Billed Treatment 1. gt 15 LIONEL LANDIN PT Mar 15, 2023 09:34
[2023-03-15 11:13] VITALS: BP 128/64
--- NOTE | 2023-03-15 13:15 | Progress Note - Cardiology ---
Cardiology SOAP Progress Note Subjective: No cp or palp or syncope No n/v/d Gen weakness and malaise Notes bilat leg weakness. Is undergoing physical therapy Shortness of breath with activity, improved since pacemaker Objective: I&O/Vital Signs 03/15/23 03/15/23 03/15/23 03/15/23 03:45 07:00 07:09 07:57 Temp 36.3 36.6 Pulse 68 60 97 Resp 18 20 B/P (MAP) 131/62 (85) 175/66 (102) Pulse Ox 95 94 96 O2 Delivery Room Air Room Air Room Air 03/15/23 03/15/23 03/15/23 03/15/23 08:00 09:01 11:12 11:13 Pulse 97 70 70 B/P (MAP) 128/64 (85) O2 Delivery Room Air 03/15/23 12:30 Pulse 61 03/15/23 00:00 Intake Total 1775 ml Output Total 2025 ml Balance -250 ml Weight (Pounds): 232 Weight (Ounces): 0.0 Weight (Calculated Kilograms): 105.580720 Bruising: moderated bruising (at site of pacemaker implantation) Constitutional: AAO x 3, well-developed, well-nourished Respiratory: No accessory muscle use; chest expansion is symmetric, chest is bilaterally symmetric, other (fair, bilateral air entry) Cardiovascular: regular rate-rhythm, S1 and S2, systolic murmur (soft CHACHO at card base) Gastrointestional: No tender; soft; No guarding; audible bowel sounds Extremities: No clubbing, No cyanosis, No significant edema Neurologic/Psychiatric: oriented x 3, other (moves all limbs equally) Skin: normal color, warm/dry; No cyanosis, No cool, No diaphoresis, No rash on exposed areas, No ulcerations on exposed areas Results/Procedures: Labs Laboratory Tests 03/15/23 05:35: White Blood Count 6.0, Red Blood Count 3.94, Hemoglobin 12.3, Hematocrit 36, Mean Corpuscular Volume 91, Mean Corpuscular Hemoglobin 31, Mean Corpuscular Hemoglobin Concent 34, Red Cell Distribution Width 13.3, Platelet Count 196, Mean Platelet Volume 9.7, Sodium Level 135, Potassium Level 4.2, Chloride Level 103, Carbon Dioxide Level 24, Anion Gap 8, Blood Urea Nitrogen 11, Creatinine 0.52L, Estimat Glomerular Filtration Rate 96, BUN/Creatinine Ratio 21, Glucose Level 95, Calcium Level 8.7 Microbiology 03/13/23 MRSA Screen - Final, Complete MRSA not isolated Laboratory Tests 03/13/23 18:13 03/14/23 04:33 03/15/23 05:35 A/P: Assessment: Complete heart block - Status post dual-chamber pacemaker implantation on March 13, 2023 - small hematoma at the pacemaker site Chronic intermittent chest pain, nonspecific - Requesting conservative manangement; doesn't want to do a stress test H/o SSS/AF treated with sotalol, clinically stable - chronically on rivaroxaban for stroke prophylaxis 2D echo was done in October 2021 showing normal LV size with ejection fraction 60 to 65%, mild LVH, calcified mitral valve, mild aortic regurgitation, PA pressure 50 to 55 mmHg. CVA, MRI of the brain July 12, 2015 revealed subtle restricted diffusion in the left thalamus which may be secondary to acute or subacute ischemic event. 2- D echocardiogram was within normal limits, carotid duplex done July 2015 revealed mild nonobstructive disease bilaterally. Coronary artery disease-patient - Cardiac catheterization with Dr. Baldwin in 2011 revealing 30-40 percent les ion in the LAD, tortuous lesion with 160 turn in the mid followed by 270 turn in the distal, nonobstructive disease in the circumflex or RCA. Medical management recommended. - Stress test was done in November 2018 showing no ischemia or infarction, - Echo done in October 2018 showing normal LV size and function, EF 65 percent, mild mitral and tricuspid regurgitation, pulmonary hypertension with PA pressure of 55-60 mmHg. - CAD managed conservatively per patient request Chronic limb and hip pain and weakness of legs - ROB was done on September 19, 2021 and it was normal bilaterally with normal TBI and waveforms. Has chronic venous stasis changes. Mild bilateral carotid stenosis - followed by Dr Reid; last checkup was done in March 2022. Hypertension, by history Hyperlipidemia, by history Peripheral edema -maintained on HCTZ 25 mg daily. Chronic right foot drop-underwent foot surgery September 2015. Plan: * I interviewed and examined the patient, reviewed her records, and answered her questions * Continue PT. D/c when able to ambulate independently * Monitor labs * Resume Xarelto starting tomorrow. Held for a few days because of hematoma post pacemaker implantation CARY ERAZO MD FACP FAC [facility]S Mar 15, 2023 13:15
[2023-03-15 16:32] VITALS: BP 129/67
[2023-03-15 19:32] VITALS: BP 129/67
[2023-03-15] MEDS: MELATONIN 3 MG TABLET PO PRN (19:36)
[2023-03-15] MEDS: ACETAMINOPHEN 325 MG TABLET PO PRN (19:37)
[2023-03-15 23:00] VITALS: BP 132/56
[2023-03-16] VITALS (7 sets, daily range): BP systolic 107–161; BP diastolic 51–73
[2023-03-16 06:05] LABS: HEMATOCRIT 37 % (35-52); HEMOGLOBIN 12.6 g/dL (11.5-16.0); MEAN CORPUSCULAR HEMOGLOBIN 31 pg (25-34); MEAN CORPUSCULAR HGB CONC 34 g/dL (32-36); MEAN CORPUSCULAR VOLUME 92 fL (80-99); MEAN PLATELET VOLUME 9.8 fL (9.0-12.2); PLATELET COUNT 215 10^3/uL (130-400); WHITE BLOOD COUNT 5.7 10^3/uL (4.3-11.0)
[2023-03-16 06:27] LABS: CREATININE SERUM 0.54 MG/DL (0.60-1.30)
[2023-03-16] MEDS: RT-LEVALBUTEROL 1.25 MG/3 ML NEBS (NON-FORMULARY) INH SCH (07:00)
[2023-03-16] MEDS: CEPHALEXIN 250 MG CAPSULE PO SCH ×2 (09:10→19:44)
[2023-03-16] MEDS: SOTALOL 80 MG TABLET PO SCH ×2 (09:10→19:44)
--- NOTE | 2023-03-16 15:07 | Progress Note - Cardiology ---
Cardiology SOAP Progress Note Subjective: No cp or palp or syncope or shortness of breath No n/v/d No focal weakness Gen weakness and malaise improving Objective: I&O/Vital Signs 03/16/23 03/16/23 03/16/23 03/16/23 03:14 07:00 07:01 07:32 Temp 37.0 36.5 Pulse 64 60 60 Resp 18 18 B/P (MAP) 131/72 (91) 161/73 (102) Pulse Ox 95 97 95 O2 Delivery Room Air Room Air Room Air 03/16/23 03/16/23 03/16/23 03/16/23 08:00 09:10 11:26 11:27 Temp 36.6 Pulse 71 70 70 Resp 20 B/P (MAP) 128/58 (81) Pulse Ox 98 O2 Delivery Room Air Room Air 03/16/23 12:23 Pulse 66 03/16/23 00:00 Intake Total 1245 ml Output Total 1650 ml Balance -405 ml Weight (Pounds): 232 Weight (Ounces): 0.0 Weight (Calculated Kilograms): [id number] Bruising: moderated bruising (at site of pacemaker implantation) Constitutional: AAO x 3, well-developed, well-nourished Respiratory: No accessory muscle use; chest expansion is symmetric, chest is bi laterally symmetric, other (fair, bilateral air entry) Cardiovascular: regular rate-rhythm, S1 and S2, systolic murmur (soft CHACHO at card base) Gastrointestional: No tender; soft; No guarding; audible bowel sounds Extremities: No clubbing, No cyanosis, No significant edema Neurologic/Psychiatric: oriented x 3, other (moves all limbs equally) Skin: normal color, warm/dry; No cyanosis, No cool, No diaphoresis, No rash on exposed areas, No ulcerations on exposed areas Results/Procedures: Labs Laboratory Tests 03/16/23 05:30: White Blood Count 5.7, Red Blood Count 4.02, Hemoglobin 12.6, Hematocrit 37, Mean Corpuscular Volume 92, Mean Corpuscular Hemoglobin 31, Mean Corpuscular Hemoglobin Concent 34, Red Cell Distribution Width 13.4, Platelet Count 215, Mean Platelet Volume 9.8, Sodium Level 135, Potassium Level 4.0, Chloride Level 103, Carbon Dioxide Level 22, Anion Gap 10, Blood Urea Nitrogen 11, Creatinine 0.54L, Estimat Glomerular Filtration Rate 95, BUN/Creatinine Ratio 20, Glucose Level 88, Calcium Level 9.0 Microbiology 03/13/23 MRSA Screen - Final, Complete MRSA not isolated Laboratory Tests 03/15/23 05:35 03/16/23 05:30 A/P: Assessment: Complete heart block - Status post dual-chamber pacemaker implantation on March 13, 2023 - small hematoma at the pacemaker site Chronic intermittent chest pain, nonspecific - Requesting conservative manangement; doesn't want to do a stress test H/o SSS/AF treated with sotalol, clinically stable - chronically on rivaroxaban for stroke prophylaxis 2D echo was done in October 2021 showing normal LV size with ejection fraction 60 to 65%, mild LVH, calcified mitral valve, mild aortic regurgitation, PA pressure 50 to 55 mmHg. CVA, MRI of the brain July 12, 2015 revealed subtle restricted diffusion in the left thalamus which may be secondary to acute or subacute ischemic event. 2- D echocardiogram was within normal limits, carotid duplex done July 2015 revealed mild nonobstructive disease bilaterally. Coronary artery disease-patient - Cardiac catheterization with Dr. Baldwin in 2011 revealing 30-40 percent lesion in the LAD, tortuous lesion with 160 turn in the mid followed by 270 turn in the distal, nonobstructive disease in the circumflex or RCA. Medical management recommended. - Stress test was done in November 2018 showing no ischemia or infarction, - Echo done in October 2018 showing normal LV size and function, EF 65 percent, mild mitral and tricuspid regurgitation, pulmonary hypertension with PA pressure of 55-60 mmHg. - CAD managed conservatively per patient request Chronic limb and hip pain and weakness of legs - ROB was done on September 19, 2021 and it was normal bilaterally with normal TBI and waveforms. Has chronic venous stasis changes. Mild bilateral carotid stenosis - followed by Dr Reid; last checkup was done in March 2022. Hypertension, by history Hyperlipidemia, by history Peripheral edema -maintained on HCTZ 25 mg daily. Chronic right foot drop-underwent foot surgery September 2015. Plan: * Continue PT. D/c when able to ambulate independently * Monitor labs * Resume CARY Chavez MD [facility] Mar 16, 2023 15:06
[2023-03-16] MEDS ORDERED: RIVAROXABAN 20 MG TABLET PO SCH (17:00)
[2023-03-16] MEDS: ACETAMINOPHEN 325 MG TABLET PO PRN (19:45)
[2023-03-16] MEDS ORDERED: RT-LEVALBUTEROL 1.25 MG/3 ML NEBS (NON-FORMULARY) INH PRN (19:45)
[2023-03-17 03:07] VITALS: BP 138/74
[2023-03-17 05:48] LABS: HEMATOCRIT 36 % (35-52); HEMOGLOBIN 12.1 g/dL (11.5-16.0); MEAN CORPUSCULAR HEMOGLOBIN 31 pg (25-34); MEAN CORPUSCULAR HGB CONC 34 g/dL (32-36); MEAN CORPUSCULAR VOLUME 92 fL (80-99); MEAN PLATELET VOLUME 9.8 fL (9.0-12.2); PLATELET COUNT 219 10^3/uL (130-400); WHITE BLOOD COUNT 6.3 10^3/uL (4.3-11.0)
[2023-03-17 06:09] LABS: POTASSIUM 4.3 MMOL/L (3.6-5.0)
[2023-03-17 06:10] LABS: CALCIUM 8.9 MG/DL (8.5-10.1)
[2023-03-17 06:14] LABS: CREATININE SERUM 0.56 MG/DL (0.60-1.30)
[2023-03-17 07:43] VITALS: BP 162/73
[2023-03-17] MEDS: SOTALOL 80 MG TABLET PO SCH (08:00)
[2023-03-17] MEDS: CEPHALEXIN 250 MG CAPSULE PO SCH (08:00)
[2023-03-17] MEDS: ACETAMINOPHEN 325 MG TABLET PO PRN (08:04)
--- NOTE | 2023-03-17 09:05 | Cardiology Progress Note ---
Subjective Date Seen by Provider: Mar 17, 2023 Time Seen by Provider: 09:04 Subjective/Events-last exam Patient was seen at bedside sitting comfortably, was anxious to go home Slightly confused Review of Systems General: No Chills, No Night Sweats, No Fatigue, No Malaise, No Appetite, No Ot her HEENT: No Head Aches, No Visual Changes, No Eye Pain, No Ear Pain, No Dysp hasia, No Sinus Congestion, No Post Nasal Drip, No Sore Throat, No Other Pulmonary: No Dyspnea, No Cough, No Pleuritic Chest Pain, No Other Cardiovascular: No: Chest Pain, Palpitations, Orthopnea, Paroxysmal Noc. Dyspnea, Edema, Lt Headedness, Other Objective-Cardiology Exam Last Set of Vital Signs Vital Signs 03/14/23 03/16/23 03/17/23 13:00 19:40 07:43 Temp 36.6 Pulse 73 Resp 17 B/P (MAP) 162/73 (102) Pulse Ox 91 O2 Delivery Room Air O2 Flow Rate 2.00 FiO2 21 I&O Intake and Output 03/17/23 00:00 Intake Total 1370 ml Output Total 2775 ml Balance -1405 ml Intake Oral 1370 ml Output Urine Total 2775 ml # Bowel Movements 1 General: Alert, Oriented X3, Cooperative HEENT: Atraumatic, PERRLA Neck: Supple, No JVD, No Thyromegaly Lungs: Clear to Auscultation, Normal Air Movement Heart: Regular Rate, Normal S1, Normal S2, Other (Systolic murmur at the left sternal border) Abdomen: Normal Bowel Sounds, Soft, No Tenderness, No Hepatosplenomegaly, No Masses Extremities: No Clubbing, No Cyanosis, No Edema, Normal Pulses, No Tenderness/Swelling Skin: No Rashes, No Breakdown, No Significant Lesion Neuro: Normal Gait, Normal Speech, Strength at 5/5 X4 Ext, Normal Tone, Sensation Intact Psych/Mental Status: Mental Status NL, Mood NL Results Lab Laboratory Tests 03/17/23 05:24 A/P-Cardiology Admission Diagnosis Bradycardia Complete heart block PAF CP Assessment/Plan Symptomatic bradycardia, escape junctional rhythm Complete heart block Status post dual-chamber pacemaker implantation on March 13, 2023 Recovering well, small hematoma at the pacemaker site. Contained. Continue to monitor Okay for discharge or transfer to acute rehab and follow-up as an outpatient in 1 week Chest pain, nonspecific etiology, still having occasional chest discomfort Requesting conservative manangement, doesn't want to do a stress test Palpitations, occasional episodes, history of atrial fibrillation, better at this time, continue to montior 2D echo was done in October 2021 showing normal LV size with ejection fraction 60 to 65%, mild LVH, calcified mitral valve, mild aortic regurgitation, PA pressure 50 to 55 mmHg. CVA, MRI of the brain July 12, 2015 revealed subtle restricted diffusion in the left thalamus which may be secondary to acute or subacute ischemic event. 2- D echocardiogram was within normal limits, carotid duplex done July 2015 revealed mild nonobstructive disease bilaterally. Continue on current medications and monitor Paroxysmal atrial fibrillation-maintained on sotalol, continue to monitor. [id number] score of 5, yearly risk of stroke without oral anticoagulation 6.7 percent, maintained on Xarelto, continue to monitor Coronary artery disease-patient previously was a patient of Dr. Solitario'magen. Cardiac catheterization with Dr. Baldwin in 2011 revealing 30-40 percent lesion in the LAD, tortuous lesion with 160 turn in the mid followed by 270 turn in the distal, nonobstructive disease in the circumflex or RCA. Medical management recommended. Stress test was done in November 2018 showing no ischemia or infarction, Echo done in October 2018 showing normal LV size and function, EF 65 percent, mild mitral and tricuspid regurgitation, pulmonary hypertension with PA pressure of 55-60 mmHg. Patient has complex anatomy and significant tortuosity. Discussed possibility of repeating stress test, patient is asking to wait. Conservative management was recommended. Left lower extremity pain. Having hip pain and pain in her leg. ROB was done on September 19, 2021 and it was normal bilaterally with normal TBI and waveforms. Has chronic venous stasis changes. using compression socks, feeling better Mild bilateral carotid stenosis, last checkup was done in March 2022. Hypertension, reporting occasional hypotension We discussed holding hydrochlorothiazide and using it only if she is having edema not to exceed once a day Continue to monitor blood pressure Hyperlipidemia, monitor lipids Peripheral edema-maintained on HCTZ 25 mg daily. Chronic right foot drop-underwent foot surgery September 2015. Chronic back pain, left hip pain, foot drop. Still having pain and using a walker Obesity, BMI 27, discussed weight loss SARATH FELDMAN MD Mar 17, 2023 09:05
[2023-03-17] MEDS ORDERED: MIRA50TA PO (09:11)
[2023-03-17] MEDS ORDERED: POTA-185 PO (09:11)
[2023-03-17] MEDS ORDERED: CHOL10007 PO (09:11)
[2023-03-17] MEDS ORDERED: ACET-2650 PO (09:11)
[2023-03-17] MEDS ORDERED: PANT40TA52 PO (09:11)
[2023-03-17] MEDS ORDERED: OXYB5TAB13 PO (09:11)
[2023-03-17] MEDS ORDERED: ACET-2267 PO (09:20)
[2023-03-17] MEDS ORDERED: DOCU100T2 PO (09:20)
[2023-03-17] MEDS ORDERED: FLUT16SP22 NSEACH (09:21)
[2023-03-17] MEDS ORDERED: RIVA20TA PO (09:21)
--- NOTE | 2023-03-17 10:05 | Physical Therapy Daily Note ---
PT Daily Note-Current Subjective Patient agrees to PT. Pain Section J - Health Conditions 1. Rarely or not at all 2. Occasionally 3. Frequently 4. Almost constantly 8. Unable to answer Pain Effect on Sleep: 1 Pain Interference with Therapy: 1 Pain Interference w/Day-to-Day: 1 Transfers SCALE: Activities may be completed with or without assistive devices. 7-Pjzxpnounv-ugtcjou completes the activity by him/herself with no assistance from a helper. 5-Set-up or Clean-up Assistance-helper sets up or cleans up; patient completes activity. [place] assists only prior to or following the activity. 4-Supervision or Touching Assistance-helper provides verbal cues and/or touching/steadying and/or contact guard assistance as patient completes activity. Assistance may be provided throughout the activity or intermittently. 3-Partial/Moderate Assistance-helper does LESS THAN HALF the effort. [place] lifts, holds or supports trunk or limbs, but provides less than half the effort. 2-Substantial/Maximal Assistance-helper does MORE THAN HALF the effort. [place] lifts or holds trunk or limbs and provides more than half the effort. 3-Jbnegymbl-ejnxhh does ALL the effort. Patient does none of the effort to complete the activity. Or, the assistance of 2 or more helpers is required for the patient to complete the activity. If activity was not attempted, code reason: 7-Patient Refused. 9-Not Applicable-not attempted and the patient did not perform the activity before the current illness, exacerbation or injury. 10-Not Attempted due to Environmental Limitations-(lack of equipment, weather restraints, etc.). 88-Not Attempted due to Medical Conditions or Safety Concerns. Sit to Stand (QC): 4 Chair/Mva-yv-Lwwhb Xfer(QC): 4 Weight Bearing Cannot use the (L) UE Gait Training Distance: 200' Walk 10 feet (QC): 4 Walk 50 ft with 2 Turns(QC): 4 Walk 150 ft (QC): 4 Gait Assistive Device: FWW slow, steady gait sequence Assessment Patient is very talkative during session. Patient tolerated treatment well and is up in recliner with needs met. PT Senior Living Goals Project Admin Goals PT Project Admin Goals Time Frame: Mar 29, 2023 Roll Left & Right (QC): 6 Sit to Lying (QC): 6 Lying-Sitting on Side/Bed(QC): 6 Sit to Stand (QC): 6 Chair/Hkj-jz-Avyaa Xfer(QC): 6 Toilet Transfer (QC): 6 Walk 10 feet (QC): 6 Walk 50ft with 2 Turns (QC): 6 Walk 150 ft (QC): 6 PT Plan Treatment/Plan Treatment Plan: Continue Plan of Care Treatment Plan: Bed Mobility, Education, Functional Activity Micheline, Functional Strength, Gait, Safety, Therapeutic Exercise, Transfers Treatment Duration: Mar 29, 2023 Frequency: 6 times per week Estimated Hrs Per Day: .25 hour per day Patient and/or Family Agrees t: Yes Time Time In: 920 Time Out: 930 DATE: Mar 17, 2023 Total Billed Treatment Time: 10 Total Billed Treatment 1 visit GT 10 min JONAH CASTILLO PT Mar 17, 2023 10:05
[2023-03-17 11:15] VITALS: BP 182/80
--- NOTE | 2023-03-17 11:40 | Occupational Ther Daily Note ---
OT Current Status-Daily Note Subjective Agreeable to OT, siting in recliner w/ misposition sling Mental Status/Objective Patient Orientation: Person, Place, Time ADL-Treatment Therapy Code Descriptions/Definitions Functional Randall Measure: 0=Not Assessed/NA 4=Minimal Assistance 1=Total Assistance 5=Supervision or Setup 2=Maximal Assistance 6=Modified Randall 3=Moderate Assistance 7=Complete IndependenceSCALE: Activities may be completed with or without assistive devices. 2-Pgdhhwpmxa-konvfqy completes the activity by him/herself with no assistance from a helper. 5-Set-up or Clean-up Assistance-helper sets up or cleans up; patient completes activity. [place] assists only prior to or following the activity. 4-Supervision or Touching Assistance-helper provides verbal cues and/or touching/steadying and/or contact guard assistance as patient completes activity. Assistance may be provided throughout the activity or intermittently. 3-Partial/Moderate Assistance-helper does LESS THAN HALF the effort. [place] lifts, holds or supports trunk or limbs, but provides less than half the effort. 2-Substantial/Maximal Assistance-helper does MORE THAN HALF the effort. [place] lifts or holds trunk or limbs and provides more than half the effort. 4-Iujhcnavo-lszuyz does ALL the effort. Patient does none of the effort to complete the activity. Or, the assistance of 2 or more helpers is required for the patient to complete the activity. If activity was not attempted, code reason: 7-Patient Refused. 9-Not Applicable-not attempted and the patient did not perform the activity before the current illness, exacerbation or injury. 10-Not Attempted due to Environmental Limitations-(lack of equipment, weather restraints, etc.). 88-Not Attempted due to Medical Conditions or Safety Concerns. Eating (QC): 6 Oral Hygiene (QC): 5 Upper Body Dressing (QC): 4 Lower Body Dressing (QC): 4 removed sling to use FWW, 5 pound restriction and ROM restriction applied Education OT Patient Education: Correct positioning, Exercise program, Modified ADL techniques, Progress toward Goal/Update tx plan, Purpose of tx/functional activities, Reviewed precautions, Rehab process, Safety issues, Transfer techniques, Use of adapted equipment Teaching Recipient: Patient Teaching Methods: Discussion Response to Teaching: Verbalize Understanding, Return Demonstration OT Senior Care Goals Senior Care Goals Eating (QC): 6 Oral Hygiene (QC): 6 Toileting Hygiene (QC): 6 Shower/Bathe Self (QC): 6 Upper Body Dressing (QC): 6 Lower Body Dressing (QC): 6 On/Off Footwear (QC): 6 1=Demonstrate adherence to instructed precautions during ADL tasks. 2=Patient will verbalize/demonstrate understanding of assistive devices/modifications for ADL. 3=Patient will improve strength/tolerance for activity to enable patient to perform ADL's. OT Education/Plan Problem List/Assessment Assessment: Decreased Activ Tolerance, Decreased Safety Aware, Decreased UE Strength, Impaired I ADL's, Impaired Self-Care Skills Discharge Recommendations Plan/Recommendations: Continue POC Treatment Plan/Plan of Care Treatment,Training & Education: Yes Patient would benefit from OT for education, treatment and training to promote independence in ADL's, mobility, safety and/or upper extremity function for ADL's. Plan of Care: ADL Retraining, Functional Mobility, Group Exercise/Act as Ind, UE Funct Exercise/Act, UE Neuromus Re-Ed/Coord Treatment Duration: Mar 21, 2023 Frequency: 3 times per week Estimated Hrs Per Day: .25 hour per day Agreement: Yes Rehab Potential: Guarded Time Start Time: 09:15 Stop Time: 09:30 DATE: Mar 17, 2023 Total Time Billed (hr/min): 15 Billed Treatment Time ADL 15 min BLAINE CURRY OT Mar 17, 2023 11:40
[2023-03-17] MEDS ORDERED: CEPH250C PO (14:20)
--- NOTE | 2023-03-17 14:23 | D/C HH Face to Face Order ---
D/C Face to Face Orders Instructions for Patient Via [facility], Patient Instructions/FollowUp: see instructions Physician to follow Patient: [place] Discharge Diet for Home: Low Sodium Diet Patient Data-Allergies,Ht & Wt Patient Allergies: Coded Allergies: azithromycin (Unverified Allergy, Unknown, Rash, 12/04/21) diltiazem (Verified Allergy, Unknown, 07/13/15) erythromycin base (Unverified Allergy, Unknown, 12/04/21) metronidazole (Verified Allergy, Unknown, 07/13/15) Height (Feet): 5 Height (Inches): 1.00 Weight (Pounds): 232 Weight (Ounces): 0.0 Home Health Need/Face to Face Date of Face to Face: Mar 17, 2023 Clinical Findings: Generalized weakness and fatigue, Muscle weakness, Unsteady gait I have seen Pt [id number]: Yes Discharged To: Home Diagnosis/Conditions: SSS s/p pacemaker HTN AFib CAD HLD GERD Debility Problems/Diagnosis/Condition: (1) Debility (2) HTN (hypertension) (3) HLD (hyperlipidemia) (4) GERD (gastroesophageal reflux disease) (5) CAD (coronary artery disease) (6) SSS (sick sinus syndrome) (7) Atrial fibrillation Patient is Homebound due to: Case fall risk due to instabilty, Muscle weakness Homebound Status Due to the above stated illness, injury or surgical procedure (medical condition or diagnosis) and associated clinical findings, the patient is homebound because of his/her inability to leave home except with aid of a supportive device and/or person AND leaving the home requires a considerable and taxing effort or is medically contraindicated. Pt req the following assistanc: Aid of another person Home Health Nursing Orders Home Health Services Order: Nursing Services, Supervisor Gear Repair-Evaluate & Treat, Physical Therapy-Evaluate & Treat Home Health Infusion Therapy Line Start Date: Mar 13, 2023 Therapy Orders Therapy Orders: OT (must have SN or PT order), Physical Therapy Therapy Specific Orders: Eval assistive deivces, Teach enviro modifications/safety, Gait training, Increase strength/endurance Certify Stmt I certify that this patient is under my care and that I, a nurse practitioner or a physician; a operational assistant working with me, had a face to face encounter that - meets the physician face to face encounter requirements with this patient as dated. LANE BARROSO MD Mar 17, 2023 14:23
[2023-03-17 15:45] VITALS: BP 161/77
[2023-03-17 16:38] VITALS: BP 161/77
--- NOTE | 2023-03-17 21:37 | Discharge Summary ---
Discharge Summary Hospital Course Problems/Dx: (1) SSS (sick sinus syndrome) Status: Acute (2) S/P cardiac pacemaker procedure Status: Acute (3) HTN (hypertension) Status: Chronic (4) HLD (hyperlipidemia) Status: Chronic (5) CAD (coronary artery disease) Status: Chronic (6) GERD (gastroesophageal reflux disease) Status: Chronic (7) Debility Status: Acute Hospital Course Date of Admission: Mar 13, 2023 at 14:17 Admission Diagnosis : Sick sinus syndrome Family Physician/Provider: Griffin Truong DO Date of Discharge: 03/17/23 Discharge Diagnosis: Sick sinus syndrome s/p pacemaker, debility Hospital Course: Bobbi Rivas is a 77 year old female who was admitted with sick sinus syndrome. Cardiology was consulted and assisted with her care. She had a pacemaker placement. She was also debilitated. She worked with PT/OT and her weakness improved. She was discharged home in stable condition. She was set up with home health care. She should follow up with her PCP and Cardiology as scheduled. Labs and Pending Lab Test: Laboratory Tests 03/17/23 05:24: White Blood Count 6.3, Red Blood Count 3.89, Hemoglobin 12.1, Hematocrit 36, Mean Corpuscular Volume 92, Mean Corpuscular Hemoglobin 31, Mean Corpuscular Hemoglobin Concent 34, Red Cell Distribution Width 13.2, Platelet Count 219, Mean Platelet Volume 9.8, Sodium Level 133L, Potassium Level 4.3, Chloride Level 102, Carbon Dioxide Level 23, Anion Gap 8, Blood Urea Nitrogen 11, Creatinine 0.56L, Estimat Glomerular Filtration Rate 94, BUN/Creatinine Ratio 20, Glucose Level 85, Calcium Level 8.9 Microbiology 03/13/23 MRSA Screen - Final, Complete MRSA not isolated Home Meds Active Cephalexin 250 Mg Capsule 500 Mg PO BID 2 Days Reported Xarelto (Rivaroxaban) 20 Mg Tablet 20 Mg PO HS Fluticasone Propionate 50 Mcg/Actuation [place].susp 1 [place] NSEACH BID PRN Docusate Sodium 100 Mg Tablet 200-300 Mg PO HS PRN TAKES 2 TO 3 (100MG) TABS Tylenol Extra Strength (Acetaminophen) 500 Mg Tablet 1,000 Mg PO HS TAKES 2 (500MG) TABS Pantoprazole Sodium 40 Mg Tablet.dr 40 Mg PO DAILY Myrbetriq (Mirabegron) 50 Mg Tab.er.24h 50 Mg PO HS Vitamin D3 (Cholecalciferol (Vitamin D3)) 25 Mcg (1000 Unit) Capsule 25 Mcg PO HS Tylenol Arthritis (Acetaminophen) 650 Mg Tablet.er 1,300 Mg PO 0700,1200 TAKES 2 (650MG) TABS K-Tab ER (Potassium Chloride) 10 Meq Tablet.er 10 Meq PO DAILY Oxybutynin Chloride 5 Mg Tablet 5 Mg PO 1600 PRN Hydrochlorothiazide 25 Mg Tablet 25 Mg PO DAILY Atorvastatin Calcium 10 Mg Tablet 10 Mg PO HS Isosorbide Mononitrate ER (Isosorbide Mononitrate) 30 Mg Tab.er.24h 30 Mg PO DAILY Sotalol (Sotalol HCl) 80 Mg Tablet 80 Mg PO BID Oxybutynin Chloride 5 Mg Tablet 5 Mg PO TID Assessment/Pt Instructions see instructions Discharge Planning: >30 minutes discharge planning Discharge Instructions Discharge Diet: Low Sodium Diet Activity as Tolerated: Yes Consultations Cardiology Discharge Physical Examination Vital Signs Vital Signs Date Time Temp Pulse Resp B/P (MAP) Pulse Ox O2 Delivery O2 Flow Rate FiO2 03/17/23 16:38 36.7 60 18 161/77 95 Room Air 03/16/23 19:40 21 03/14/23 13:00 2.00 General Appearance: No Apparent Distress, WD/WN Respiratory: Lungs Clear, No Respiratory Distress Cardiovascular: Regular Rate, Rhythm, No Murmur Gastrointestinal: Normal Bowel Sounds, Soft Extremity: Normal Inspection, No Pedal Edema Skin: Normal Color, Warm/Dry Neurologic/Psychiatric: Alert, Normal Mood/Affect Allergies: Coded Allergies: azithromycin (Unverified Allergy, Unknown, Rash, 12/04/21) diltiazem (Verified Allergy, Unknown, 07/13/15) erythromycin base (Unverified Allergy, Unknown, 12/04/21) metronidazole (Verified Allergy, Unknown, 07/13/15) Discharge Summary Date of Admission Mar 13, 2023 at 14:17 Date of Discharge Mar 17, 2023 at 16:48 Discharge Date: Mar 17, 2023 Discharge Time: 16:48 Admission Diagnosis Bradycardia Consults/Procedures Consulations Cardiology Procedures Pacemaker Discharge Diagnosis Sick sinus syndrome (1) SSS (sick sinus syndrome) Status: Acute (2) S/P cardiac pacemaker procedure Status: Acute (3) HTN (hypertension) Status: Chronic (4) HLD (hyperlipidemia) Status: Chronic (5) CAD (coronary artery disease) Status: Chronic (6) GERD (gastroesophageal reflux disease) Status: Chronic (7) Debility Status: Acute LANE BARROSO MD Mar 17, 2023 21:36
== END 2023-03-17 16:48 | disposition home health service (06) | DRG 243 ==
LOC: EDUNIT# 11:53 → ER 11:54 → ICU 14:17 → 4TH 03-14 13:42
PROVIDERS: ADMIT Family Medicine; ATTEND Internal Medicine
PROC: 0JH606Z Insertion of Pacemaker, Dual Chamber into Chest Subcutaneous Tissue and Fascia, Open Approach (ICD-10-PCS; principal; 2023-03-13)
PROC: 02H63JZ Insertion of Pacemaker Lead into Right Atrium, Percutaneous Approach (ICD-10-PCS; 2023-03-13)
PROC: 02HK3JZ Insertion of Pacemaker Lead into Right Ventricle, Percutaneous Approach (ICD-10-PCS; 2023-03-13)
DX: I49.5 Sick sinus syndrome (principal); E87.1 Hypo-osmolality and hyponatremia; I44.2 Atrioventricular block, complete; L76.32 Postprocedural hematoma of skin and subcutaneous tissue following other procedure; I48.0 Paroxysmal atrial fibrillation; E86.1 Hypovolemia; E87.5 Hyperkalemia; I08.3 Combined rheumatic disorders of mitral, aortic and tricuspid valves; I27.20 Pulmonary hypertension, unspecified; I87.8 Other specified disorders of veins; G47.30 Sleep apnea, unspecified; I25.10 Atherosclerotic heart disease of native coronary artery without angina pectoris; E78.00 Pure hypercholesterolemia, unspecified; I10 Essential (primary) hypertension; G62.9 Polyneuropathy, unspecified; K21.9 Gastro-esophageal reflux disease without esophagitis; M21.371 Foot drop, right foot; F32.A Depression, unspecified; I65.23 Occlusion and stenosis of bilateral carotid arteries; E66.9 Obesity, unspecified; Z68.26 Body mass index [BMI] 26.0-26.9, adult; Z96.652 Presence of left artificial knee joint; Z79.899 Other long term (current) drug therapy; Z88.1 Allergy status to other antibiotic agents; Z91.09 Other allergy status, other than to drugs and biological substances
CPT/HCPCS: 33208; 36415; 71045; 80048; 80053; 83735; 84484; 85025; 85027; 85610; 85730; 87081; 93005; 93041; 94640